=== PATIENT | female | born 1950 | race Caucasian/White ===

== ENCOUNTER 2019-09-29 14:56 | Inpatient (IN) | payer MEDICARE, MEDICAID, OTHER ==
[2019-09-29] MEDS ORDERED: Acetaminophen 500 MG TAB ONE (15:08)
[2019-09-29] MEDS ORDERED: Ondansetron ODT 4 MG TAB PO PRN (18:22)
[2019-09-29] MEDS ORDERED: Zolpidem Tartrate 5 MG TAB PO PRN (18:22)
--- NOTE | 2019-09-29 19:10 | HP ---
PRIMARY CARE PROVIDER: Rito Recinos DO HISTORY OF PRESENT ILLNESS: Referred to the Hospitalist Service after transfer from [place]. The patient states she has been sick for 4 weeks. States she has had a sinus infection, bronchitis, and stuffy head. She got antibiotics 3 weeks ago and did not get any better. She relates this to the fact that she has Crohn disease and did not absorb well. Then, she got a liquid antibiotic that she finished 2 to 3 days ago. She has off and on fever at 99 to 101, shaking chills with that and then sweats after the fever breaks. She has had no focal complaints. She has a history of Crohn disease. She has a history of deep vein thrombosis and pulmonary emboli, on chronic oral anticoagulation, history of hypothyroidism and dyslipidemia. CURRENT MEDICATIONS: 1. Levothyroxine 100 mcg a day. 2. Azathioprine 150 mg a day. 3. Esomeprazole 20 mg a day. 4. Eliquis 5 mg twice a day. 5. Potassium chloride 10 mEq twice a day. 6. Lipitor 20 mg a day. 7. Gabapentin 600 mg a day. ALLERGIES: CIPROFLOXACIN, HYDROCODONE, AND WARFARIN. SURGICAL HISTORY: She had abdominal surgery for Crohn's 5 to 6 years ago and ended up with a colostomy. She ended up having a reanastomosis later. FAMILY HISTORY: Mother of cancer. She thinks it was liver. Her mother also had deep vein thrombosis. SOCIAL HISTORY: . Full code status. Daughter, Marlyn Richardson, is next of kin for decision making. Nonsmoker. Drinks a very occasional glass of wine. REVIEW OF SYSTEMS: GENERAL: She has been lightheaded with present illness, but not definitely with arising. No fainting. EYES: No double vision, blurred vision, or flashing lights. EARS, NOSE AND THROAT: No ear pain or drainage. No nasal bleeding. No trouble swallowing. CARDIAC: No chest pain, orthopnea, or paroxysmal nocturnal dyspnea. RESPIRATIONS: No cough, wheezing, or asthma. GASTROINTESTINAL: She has a little nausea with fever. She has occasional diarrhea with no blood that she relates to her Crohn disease. GENITOURINARY: No hematuria or dysuria. MUSCULOSKELETAL: She states her legs are puffy. SKIN: No bruises, bleeding, or rash. HEMATOLOGIC/LYMPHATIC: No tender or swollen lymph nodes in the axilla, inguinal, or cervical area. NEUROLOGIC: No strokes, seizures, or focal weakness. PHYSICAL EXAMINATION: GENERAL: The patient is alert, oriented, cooperative, pleasant lady. VITAL SIGNS: Temperature in the ER ranged from 100.2 to 101.3. Her pulse ranged from 110 to 115. Blood pressure ranged from 107/60 to 158/79. HEAD, EYES, EARS, NOSE, AND THROAT: Revealed pupils are equal, round, and reactive. Extraocular movements are intact. Sclerae are white. Tympanic membranes are clear. Nose is clear. Oral mucous membranes are wet. Dental hygiene is good. CHEST: Clear to auscultation and percussion. HEART: Regular rate and rhythm. First and second heart sounds are clear. There are no appreciated murmurs or gallops. ABDOMEN: Soft. Bowel sounds are normal. There is no hepatosplenomegaly. No mass. No rebound. No bruits. EXTREMITIES: Reveal no cyanosis or clubbing. She has 1 to 2+ pedal edema. PULSES: Carotid, radial, femoral and dorsalis pedis pulses are intact and symmetric. SKIN: Warm and dry without bruises or rash. HEMATOLOGIC/LYMPHATIC: No tender or swollen lymph nodes in axilla, inguinal, or cervical area. NEUROLOGIC: Cranial nerves 2 through 12 intact. Deep tendon reflexes are symmetric. Moves all extremities. IMAGING STUDIES: Chest x-ray reveals no CHF, infiltrate, or cardiomegaly. EKG, sinus tachycardia with no acute ST-T segment abnormality. Both were reviewed by me. LABORATORY DATA: Lactic acid here is 2.6. Laboratory done in [place] [facility]: White count 2.6 with low lymphocytes and neutrophilia, hemoglobin 8.9, platelet count 213,000. Creatinine 2.19, BUN 43. I reviewed her old records. These are dramatically abnormal. Blood sugar 119. Lactic acid 3.2 and then 2.6. Sodium 134, potassium 3.8, CO2 of 15. ADMITTING DIAGNOSES: 1. Sepsis. 2. Acute renal failure. 3. Lactic acidosis. 4. Crohn's. 5. Tachycardia. 6. Fever. DISCUSSION: I suspect the patient's anemia and low white cell count is secondary to her azathioprine. The etiology of her sepsis certainly is not clear. Blood and urine cultures have been ordered. Broad-spectrum antibiotics have been started. IV fluids have been started. Consideration should be given to an intraabdominal abscess; however, CAT scan of the abdomen with contrast would probably be necessary and with her current renal function, we will hold off on this. Repeat renal function studies tomorrow after IV fluids. We will start with IV antibiotics with Ceftin and vancomycin, pharmacy to dose. She is on Eliquis 5 mg twice a day. With her current renal function, we will reduce this to 2.5 mg twice a day. Job ID: [id number]
[2019-09-29] MEDS: Acetaminophen 325 MG TAB PO PRN (20:23)
[2019-09-29] MEDS: Sodium Chloride 0.9% 1,000 ML IV SCH (20:40)
[2019-09-29] MEDS: Famotidine/PF 20 mg/2ml Vial SLOW IVP SCH (20:45)
[2019-09-29] MEDS: Apixaban 2.5 MG TAB PO SCH (20:46)
[2019-09-29] MEDS: Cefepime 2 GM in Sodium Chloride 0.9% 100 ML IVPB SCH (20:46)
[2019-09-29] MEDS: Morphine 4 MG/ML VIAL SLOW IVP PRN (21:34)
[2019-09-29 23:50] LABS: Lactic Acid 0.8 mmol/L (0.5-2.2)
[2019-09-30] MEDS: Acetaminophen 325 MG TAB PO PRN ×4 (01:24→23:50)
[2019-09-30] MEDS: Morphine 4 MG/ML VIAL SLOW IVP PRN ×2 (01:36→08:50)
[2019-09-30] MEDS: Sodium Chloride 0.9% 1,000 ML IV SCH ×3 (02:56→16:53)
[2019-09-30 04:58] LABS: #Eosinphils 0.1 thou/uL (0.0-0.7); #Lymphocytes 0.2 thou/uL (1.20-3.40); #Monocytes 0.1 thou/uL (0.11-0.59); #Neutrophils 2.2 thou/uL (1.40-6.50); %Basophils 0.6 % (0.0-1.0); %Eosinophils 2.1 % (0.0-10.0); %Lymphocytes 6.4 % (21.0-51.0); %Monocytes 2.9 % (0.0-10.0); %Neutrophils 88.1 % (42.0-75.0); Hemoglobin 7.6 g/dL (12.0-16.0); Mean Corpuscular HGB CONC 32.7 g/dL (32.0-36.0); Mean Corpuscular Hemoglobin 30.2 pg (27.0-31.0); Mean Corpuscular Volume 92.4 fL (78.0-98.0); Mean Platelet Volume 9.4 fL (7.4-10.4); Platelet Count 213 thou/uL (130-400); Red Blood Cell (RBC) Count 2.51 mill/uL (4.20-5.40); White Blood Cell (WBC) Count 2.4 thou/uL (4.8-10.8)
[2019-09-30 05:25] LABS: Anion Gap 11 mmol/L (10-20); BUN (Urea Nitrogen) 33 mg/dL (9.8-20.1); Calc. Creatinine Clearance 52 mL/min (70-130); Calcium 6.8 mg/dL (7.8-10.44); Carbon Dioxide 15 mmol/L (23-31); Chloride 112 mmol/L (98-107); Estimated GFR-MDRD 34; Glucose 79 mg/dL (80-115); Potassium 4.4 mmol/L (3.5-5.1); Sodium 134 mmol/L (136-145)
[2019-09-30] MEDS: Cefepime 2 GM in Sodium Chloride 0.9% 100 ML IVPB SCH ×2 (08:34→21:13)
[2019-09-30] MEDS: Famotidine/PF 20 mg/2ml Vial SLOW IVP SCH ×2 (08:35→21:17)
[2019-09-30] MEDS: Apixaban 2.5 MG TAB PO SCH ×2 (08:35→21:23)
--- NOTE | 2019-09-30 09:18 | PDOC.HOSPP ---
- Subjective Encounter Date: 09/30/19 Encounter Time: 09:08 Subjective: still having fever, chills. mild vague abd discomfort - Objective Vital Signs & Weight: Vital Signs (12 hours) Temp Pulse Resp BP Pulse Ox 09/30/19 04:20 99.3 F 09/30/19 02:54 100.8 F H 110 H 20 103/46 L 97 09/30/19 01:25 101.8 F H 09/29/19 23:02 101.9 F H 112 H 20 114/51 L 97 Weight Weight 211 lb 3 oz Result Diagrams: 09/30/19 04:34 09/30/19 04:34 Hospitalist ROS - Medication Medications: Active Medications Generic Name Dose Route Start Last Admin Trade Name Freq PRN Reason Stop Dose Admin Acetaminophen 650 mg 09/29/19 18:22 09/30/19 08:34 Tylenol PO 650 mg Q4H PRN Administration Headache/Fever/Mild Pain (1-3) Apixaban 2.5 mg 09/29/19 21:00 09/30/19 08:35 Eliquis PO 2.5 mg BID SLADE Administration Famotidine 20 mg 09/29/19 21:00 09/30/19 08:35 Pepcid SLOW IVP 20 mg Q12HR SLADE Administration Sodium Chloride 1,000 mls @ 150 mls/hr 09/29/19 18:30 09/30/19 08:33 Normal Saline 0.9% IV 1,000 mls .Q6H40M SLADE Administration Cefepime HCl 2 gm/ Sodium 100 mls @ 200 mls/hr 09/29/19 21:00 09/30/19 08:34 Chloride IVPB 100 mls Q12HR SLADE Administration Morphine Sulfate 4 mg 09/29/19 19:42 09/30/19 08:50 Morphine SLOW IVP 4 mg Q4H PRN Administration Moderate to Severe Pain (6-10) Ondansetron HCl 4 mg 09/29/19 18:22 09/30/19 08:34 Zofran Odt PO 4 mg Q6H PRN Administration Nausea/Vomiting Sodium Chloride 10 ml 09/29/19 21:00 09/30/19 08:35 Flush - Normal Saline IVF 10 ml Q12HR SLADE Administration - Exam General Appearance: awake alert Neck: no JVD Heart: RRR, no murmur Respiratory: CTAB Gastrointestinal: soft, non-tender, normal bowel sounds Extremities: no edema Hosp A/P (1) Sepsis Code(s): A41.9 - SEPSIS, UNSPECIFIED ORGANISM Status: Acute Qualifiers: Sepsis type: sepsis due to unspecified organism Sepsis acute organ dysfunction status: with acute organ dysfunction Severe sepsis acute organ dysfunction type: acute renal failure Severe sepsis shock status: without septic shock (2) Acute renal failure Status: Acute Qualifiers: Acute renal failure type: unspecified Qualified Code(s): N17.9 - Acute kidney failure, unspecified (3) Metabolic acidosis Code(s): E87.2 - ACIDOSIS Status: Acute (4) Crohn disease Code(s): K50.90 - CROHN'S DISEASE, UNSPECIFIED, WITHOUT COMPLICATIONS Status: Acute Qualifiers: Gastrointestinal tract location: small intestine Digestive disease complication type: unspecified complication Qualified Code(s): K50.019 - Crohn 's disease of small intestine with unspecified complications (5) Anticoagulant long-term use 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
[2019-09-30] MEDS ORDERED: Vancomycin 1 GM in Premix Bag 1 BAG IVPB SCH ×2 (10:00→16:00)
--- NOTE | 2019-09-30 12:40 | CT ---
EXAM: CT Abdomen Pelvis W Con PROVIDED CLINICAL HISTORY: Abdominal pain, fever COMPARISON: 05/27/2019 FINDINGS: The visualized lung bases are free of significant opacity. Trace right pleural fluid. The spleen is enlarged, measuring about 14.7 cm in craniocaudal dimension. The liver, pancreas, kidne ys and adrenal glands demonstrate an unremarkable CT appearance. There is conspicuous gallbladder distention without overt pericholecystic inflammatory change. There is mild free fluid within the right paracolic gutter and hepatorenal recess. Wide necked ventral hernias are redemonstrated, similar to prior. There is no evidence for bowel obst ruction. No evidence for free intraperitoneal air. Nonspecific patchy fluid density within the subcutaneous adipose layer at the left lateral abdominal wall. Vascular calcifications are seen. The osseous structures demonstrate no concerning lytic or blastic l esions. IMPRESSION: 1. Conspicuous gallbladder distention without overt pericholecystic inflammatory change. Consider Rig ht upper quadrant ultrasound as indicated. 2. Mild free intraperitoneal fluid. 3. Other findings as above.
[2019-09-30] MEDS ORDERED: Iopamidol 370 76% 50 ML VIAL FS ONE (13:22)
[2019-09-30] MEDS: traMADol HCl 50 MG TAB PO PRN ×2 (16:10→21:15)
[2019-09-30] MEDS: Sodium Bicarbonate Tab 325 MG TAB PO SCH ×2 (16:10→21:15)
[2019-09-30] MEDS: Vancomycin 1 GM in Premix Bag 1 BAG IVPB SCH (21:24)
[2019-10-01] MEDS: Morphine 4 MG/ML VIAL SLOW IVP PRN (00:15)
[2019-10-01] MEDS: Levothyroxine Sodium 100 MCG TAB PO SCH (06:01)
[2019-10-01] MEDS: Sodium Chloride 0.9% 1,000 ML IV SCH ×3 (06:01→20:37)
[2019-10-01] MEDS: Acetaminophen 325 MG TAB PO PRN ×4 (06:21→21:33)
--- NOTE | 2019-10-01 07:49 | ULT ---
RIGHT UPPER QUADRANT ABDOMINAL ULTRASOUND: HISTORY: Abnormal CT with nausea, fever, and diarrhea. COMPARISON: CT abdomen/pelvis 09/30/2019. TECHNIQUE: Multiplanar, reyna scale, and color Doppler images were obtained in a right upper quadrant abdominal u ltrasound. FINDINGS: The liver demonstrates increased echogenicity without focal lesions or intrahepatic ductal dilatation . There is a small mobile gallstone in the gallbladder. The gallbladder is distended without gallbl adder wall thickening or pericholecystic fluid. The common bile duct is normal measuring 5 mm. The visualized portions of the pancreas are unremarkable. The right kidney is normal in echogenicity without hydronephrosis or calculus and measures 9.4 cm in length. IMPRESSION: 1. Cholelithiasis. 2. Fatty liver. POS: EAA
[2019-10-01] MEDS: Apixaban 2.5 MG TAB PO SCH ×2 (09:24→20:37)
[2019-10-01] MEDS: Sodium Bicarbonate Tab 325 MG TAB PO SCH ×3 (09:24→20:37)
[2019-10-01] MEDS: Cefepime 2 GM in Sodium Chloride 0.9% 100 ML IVPB SCH ×2 (09:25→20:39)
[2019-10-01] MEDS: Famotidine/PF 20 mg/2ml Vial SLOW IVP SCH (09:26)
[2019-10-01 09:56] LABS: #Eosinphils 0.1 thou/uL (0.0-0.7); #Lymphocytes 0.1 thou/uL (1.20-3.40); #Monocytes 0.1 thou/uL (0.11-0.59); #Neutrophils 1.7 thou/uL (1.40-6.50); %Eosinophils 3.9 % (0.0-10.0); %Neutrophils 87.1 % (42.0-75.0); Mean Corpuscular HGB CONC 31.3 g/dL (32.0-36.0); Mean Corpuscular Hemoglobin 29.7 pg (27.0-31.0); Mean Corpuscular Volume 95.1 fL (78.0-98.0); Platelet Count 202 thou/uL (130-400); RBC Distribution Width 15.2 % (11.5-14.5); Red Blood Cell (RBC) Count 2.34 mill/uL (4.20-5.40); White Blood Cell (WBC) Count 1.9 thou/uL (4.8-10.8)
[2019-10-01 10:19] LABS: ALT (SGPT) 11 U/L (8-55); AST (SGOT) 33 U/L (5-34); Albumin 1.9 g/dL (3.4-4.8); Alkaline Phosphatase 93 U/L (40-110); Anion Gap 12 mmol/L (10-20); BUN (Urea Nitrogen) 29 mg/dL (9.8-20.1); Bilirubin, Total 0.4 mg/dL (0.2-1.2); Calc. Creatinine Clearance 67 mL/min (70-130); Calcium 6.8 mg/dL (7.8-10.44); Carbon Dioxide 13 mmol/L (23-31); Chloride 114 mmol/L (98-107); Estimated GFR-MDRD 45; Globulin 2.7 g/dL (2.4-3.5); Glucose 68 mg/dL (80-115); Potassium 4.4 mmol/L (3.5-5.1); Protein, Total 4.6 g/dL (6.0-8.3); Sodium 135 mmol/L (136-145)
--- NOTE | 2019-10-01 11:09 | PDOC.HOSPP ---
- Subjective Encounter Date: 10/01/19 Encounter Time: 10:58 Subjective: cont to have fever, chills. now with cough. no diarrhea, abd pain - Objective Vital Signs & Weight: Vital Signs (12 hours) Temp Pulse Resp BP Pulse Ox 10/01/19 09:43 97 10/01/19 08:00 99.1 F 94 24 H 109/53 L 97 10/01/19 04:00 99.9 F H 99 16 122/52 L 98 10/01/19 00:00 102.7 F H 126 H 20 116/70 96 Weight Admit Weight 211 lb 3 oz Weight 211 lb 3 oz I&O: 09/30/19 10/01/19 10/02/19 06:59 06:59 06:59 Intake Total 1150 2130 Output Total 550 400 Balance 600 1730 Result Diagrams: 10/01/19 09:29 10/01/19 09:29 Hospitalist ROS - Medication Medications: Active Medications Generic Name Dose Route Start Last Admin Trade Name Freq PRN Reason Stop Dose Admin Acetaminophen 650 mg 09/29/19 18:22 10/01/19 06:21 Tylenol PO 650 mg Q4H PRN Administration Headache/Fever/Mild Pain (1-3) Apixaban 2.5 mg 09/29/19 21:00 10/01/19 09:24 Eliquis PO 2.5 mg BID SLADE Administration Sodium Chloride 1,000 mls @ 150 mls/hr 09/29/19 18:30 10/01/19 06:01 Normal Saline 0.9% IV 1,000 mls .Q6H40M SLADE Administration Cefepime HCl 2 gm/ Sodium 100 mls @ 200 mls/hr 09/29/19 21:00 10/01/19 09:25 Chloride IVPB 100 mls Q12HR SLADE Administration Vancomycin HCl 1 gm/ Device 200 mls @ 200 mls/hr 09/30/19 22:00 09/30/19 21: 24 IVPB 200 mls 2200 SLADE Administration Levothyroxine Sodium 100 mcg 10/01/19 06:00 10/01/19 06:01 Synthroid PO 100 mcg 0600 SLADE Administration Morphine Sulfate 4 mg 09/29/19 19:42 10/01/19 00:15 Morphine SLOW IVP 4 mg Q4H PRN Administration Moderate to Severe Pain (6-10) Ondansetron HCl 4 mg 09/29/19 18:22 09/30/19 08:34 Zofran Odt PO 4 mg Q6H PRN Administration Nausea/Vomiting Pantoprazole Sodium 40 mg 10/01/19 09:00 10/01/19 09:24 Protonix PO 40 mg DAILY SLADE Administration Sodium Bicarbonate 650 mg 09/30/19 15:00 10/01/19 09:24 Bicarbonate, Sodium PO 650 mg TID SLADE Administration Sodium Chloride 10 ml 09/29/19 21:00 10/01/19 09:27 Flush - Normal Saline IVF 10 ml Q12HR SLADE Administration Tramadol HCl 25 mg 09/30/19 09:06 09/30/19 21:15 Ultram PO 25 mg BIDPRN PRN Administration Pain - Exam General Appearance: awake alert Neck: no JVD Heart: RRR, no murmur Respiratory: CTAB Gastrointestinal: soft, non-tender, normal bowel sounds Extremities: no edema Hosp A/P (1) Sepsis Code(s): A41.9 - SEPSIS, UNSPECIFIED ORGANISM Status: Acute Qualifiers: Sepsis type: sepsis due to unspecified organism Sepsis acute organ dysfunction status: with acute organ dysfunction Severe sepsis acute organ dysfunction type: acute renal failure Severe sepsis shock status: without septic shock (2) Acute renal failure Status: Acute Qualifiers: Acute renal failure type: unspecified Qualified Code(s): N17.9 - Acute kidney failure, unspecified (3) Metabolic acidosis Code(s): E87.2 - ACIDOSIS Status: Acute (4) Crohn disease Code(s): K50.90 - CROHN'S DISEASE, UNSPECIFIED, WITHOUT COMPLICATIONS Status: Acute Qualifiers: Gastrointestinal tract location: small intestine Digestive disease complication type: unspecified complication Qualified Code(s): K50.019 - Crohn 's disease of small intestine with unspecified complications (5) Anticoagulant long-term use 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
--- NOTE | 2019-10-01 14:03 | CT ---
CHEST CT SCAN: Date: 10/01/2019 HISTORY: Cough for 3 weeks and shortness of breath with exertion, with clinical concern for COVID. FINDINGS: There is considerable motion artifact. Very minimal right pleural fluid or pleural thickening. No anne dence for alveolar parenchymal changes, confluent pneumonia, or abnormal ground-glass opacity changes . No mediastinal mass or adenopathy. There is evidence for large left upper lateral abdominal wall he rnia, as well as some prominent left upper lateral abdominal wall subcutaneous fat stranding. There a re some borderline to minimally enlarged lymph nodes in the gastrohepatic ligament region up to 1.5 c m short axis. IMPRESSION: No evidence for pneumonia. Small pleural effusion or pleural thickening. Several borderline to mildly enlarged gastrohepatic ligament lymph nodes. Large left anterolateral abdominal wall ventral hernia. Focal superficial soft tissue subcutaneous fat stranding involving the lateral upper visualized abdo men. POS: RRE
--- NOTE | 2019-10-01 15:16 | PDOC.EVN ---
Event Note - Event Note Event Note: COVID still pending. CT chest unrevealing etiology of fever/sepsis
--- NOTE | 2019-10-01 15:33 | CON ---
DATE OF CONSULTATION: 10/01/2019 REASON FOR CONSULTATION: Fever of unknown origin. HISTORY OF PRESENT ILLNESS: A 69-year-old, whom I had seen at the rehab in 2013, when she presented with a longstanding history of inflammatory bowel disease/Crohn disease, obesity, which had been relatively quiescent until 2013, when she developed intussusception associated with active Crohn disease. She required ileostomy, partial resection of the ascending colon, and ileotransverse anastomosis. She had a breakdown of the ileostomy area, developed an enterocutaneous fistula. She did well after surgical repair and had some antimicrobial therapy, but resolved. Has not been in the hospital since 2014 and had been on Imuran, and now over the past 4 weeks, has developed recurrent episodes of fever and myalgias. She was treated with oral antimicrobial therapy for possible sinusitis and associated infection, but that did not help, so eventually was admitted. She was placed in the COVCT rule out area. Currently, she is awake. She is feeling comfortable except for when she has fever. No headaches. No visual symptoms, sore throat, odynophagia, or dysphagia. No dental pain or back pain. No cough or sputum production or chest pain. No abdominal pain. Voiding without difficulty. She has soft stool, but not liquid. No bleeding. No joint symptoms. No skin disorder. No neurological symptoms. MEDICAL HISTORY: Crohn disease with partial ileal resection with then complications, which were fixed postoperatively. She had DVT and pulmonary embolism on July 14 and has been on Eliquis since. ALLERGIES: CIPRO, HYDROCODONE, NORCO, WARFARIN. FAMILY HISTORY: Noncontributory. SOCIAL HISTORY: Never smoker. CURRENT MEDICATIONS: 1. Eliquis. 2. Cefepime. 3. Synthroid. 4. Morphine. 5. Zofran. 6. Protonix. 7. Ultram. 8. Vancomycin. PHYSICAL EXAMINATION: VITAL SIGNS: T-max of 103 on September 29, she was 99 just recently and now 100.1. BP 99/49, pulse 101, respirations 20 to 24, O2 saturation 97. SKIN: The patient has a peripheral IV access. She is urinating in the bedside commode. No lymphadenopathy. HEENT: Ocular movements are conjugate. Conjunctivae are somewhat pale. Nasal passages patent. Oral cavity normal. Numerous teeth in place. NECK: Supple. No jugular vein distention or carotid bruits. LUNGS: Symmetric, clear breath sounds. HEART: S1 and S2, regular rate. ABDOMEN: Slightly protuberant, but not tender. No ascites. No bladder distention. EXTREMITIES: Osteoarthrosis in knees and ankles, but no acute inflammatory changes. No edema. She moves extremities equally. NEUROLOGIC: Cognitive function appears to be intact. LABORATORY DATA: White cell count was 2.4, now 1.9; hemoglobin 7.6; MCV of 92; platelets 213; and 88% neutrophils. Creatinine was up at 1.52 and is down to 1.19, her baseline is 1.0. Calcium is 6.8. Liver profile is normal. Albumin 1.9. IMAGING STUDIES: Include an abdomen and pelvis CT, which showed gallbladder distention, mild free intraperitoneal fluid, ventral hernias, patchy fluid density within the subcutaneous adipose layer of the left lateral abdominal wall. CT chest with angiogram showed no pneumonia, small pleural effusion, pleural thickening, mildly enlarged gastrohepatic ligament lymph nodes. MICROBIOLOGY: We have negative blood cultures thus far negative. Negative urine culture. Influenza A and B were negative as well. ASSESSMENT: 1. Longstanding inflammatory bowel disease/Crohn's, prior complications, refer to above. 2. Imuran for treatment with presumed remission for the past 5 years. 3. Fever for the past 4 weeks of unknown origin. DISCUSSION: 1. The patient has moderate pancytopenia. Other than that, she does not have any focal symptoms. She does have some myalgias with the fever, but that is about it. The differential diagnosis includes reactivation of Crohn disease, which has not yet been disclosed. 2. Opportunistic infectious process including histoplasmosis, tuberculosis, Cryptococcal infection, and Cytomegalovirus infection. Lymphoma appears to be less likely, but not yet ruled out. Thromboembolism is unlikely in view of the concomitant use of Eliquis. Adult Still disease will be a diagnosis of exclusion if nothing else is identified. She does have significant anemia, which is more likely anemia of chronic disease, which would indicate significant inflammatory process. We will submit ferritin, cryptococcus antigen, histoplasma antigen in urine and plasma, CMV DNA PCR. If nothing pans out, then we will have to consider Karius test. Job ID: [id number]
[2019-10-01] MEDS: Vancomycin 1 GM in Premix Bag 1 BAG IVPB SCH (20:38)
[2019-10-01] MEDS: traMADol HCl 50 MG TAB PO PRN (22:46)
[2019-10-02] MEDS: Sodium Chloride 0.9% 1,000 ML IV SCH ×4 (03:01→22:01)
[2019-10-02] MEDS: Acetaminophen 325 MG TAB PO PRN ×4 (03:01→18:27)
[2019-10-02] MEDS: Levothyroxine Sodium 100 MCG TAB PO SCH (04:38)
[2019-10-02] MEDS: Apixaban 2.5 MG TAB PO SCH ×2 (08:31→21:59)
[2019-10-02] MEDS: Cefepime 2 GM in Sodium Chloride 0.9% 100 ML IVPB SCH ×2 (08:32→21:59)
[2019-10-02] MEDS: Sodium Bicarbonate Tab 325 MG TAB PO SCH ×3 (08:33→21:59)
--- NOTE | 2019-10-02 14:06 | PDOC.HOSPP ---
- Subjective Encounter Date: 10/02/19 Encounter Time: 09:45 Subjective: pt had muffin, lvery little this am. no BM, no abd pain, exam did not reveal any tenderness. - Objective Vital Signs & Weight: Vital Signs (12 hours) Temp Pulse Resp BP Pulse Ox 10/02/19 11:15 97.8 F 93 18 128/60 100 10/02/19 08:25 96.1 F L 97 18 131/73 100 10/02/19 03:08 99.5 F 83 20 113/53 L 98 Weight Admit Weight 211 lb 3 oz Weight 211 lb 3 oz I&O: 10/01/19 10/02/19 10/03/19 06:59 06:59 06:59 Intake Total 1150 5190 480 Output Total 550 1650 Balance 600 3540 480 Result Diagrams: 10/01/19 09:29 10/01/19 09:29 Hospitalist ROS - Medication Medications: Active Medications Generic Name Dose Route Start Last Admin Trade Name Freq PRN Reason Stop Dose Admin Acetaminophen 650 mg 09/29/19 18:22 10/02/19 13:54 Tylenol PO 650 mg Q4H PRN Administration Headache/Fever/Mild Pain (1-3) Apixaban 2.5 mg 09/29/19 21:00 10/02/19 08:31 Eliquis PO 2.5 mg BID SLADE Administration Sodium Chloride 1,000 mls @ 150 mls/hr 09/29/19 18:30 10/02/19 13:54 Normal Saline 0.9% IV 1,000 mls .Q6H40M SLADE Administration Cefepime HCl 2 gm/ Sodium 100 mls @ 200 mls/hr 09/29/19 21:00 10/02/19 08:32 Chloride IVPB 100 mls Q12HR SLADE Administration Vancomycin HCl 1 gm/ Device 200 mls @ 200 mls/hr 09/30/19 22:00 10/01/19 20: 38 IVPB 200 mls 2200 SLADE Administration Levothyroxine Sodium 100 mcg 10/01/19 06:00 10/02/19 04:38 Synthroid PO 100 mcg 0600 SLADE Administration Morphine Sulfate 4 mg 09/29/19 19:42 10/01/19 00:15 Morphine SLOW IVP 4 mg Q4H PRN Administration Moderate to Severe Pain (6-10) Ondansetron HCl 4 mg 09/29/19 18:22 09/30/19 08:34 Zofran Odt PO 4 mg Q6H PRN Administration Nausea/Vomiting Pantoprazole Sodium 40 mg 10/01/19 09:00 10/02/19 08:33 Protonix PO 40 mg DAILY SLADE Administration Sodium Bicarbonate 650 mg 09/30/19 15:00 10/02/19 13:54 Bicarbonate, Sodium PO 650 mg TID SLADE Administration Sodium Chloride 10 ml 09/29/19 21:00 10/02/19 08:33 Flush - Normal Saline IVF 10 ml Q12HR SLADE Administration Tramadol HCl 25 mg 09/30/19 09:06 10/01/19 22:46 Ultram PO 25 mg BIDPRN PRN Administration Pain Zolpidem Tartrate 5 mg 09/29/19 18:22 10/01/19 20:37 Ambien PO 5 mg HSPRN PRN Administration Insomnia - Exam General Appearance: NAD, awake alert Eye: PERRL ENT: normocephalic atraumatic Neck: supple Heart: RRR Respiratory: CTAB Gastrointestinal: soft, non-tender, non-distended, normal bowel sounds Hosp A/P - Plan (1) Sepsis Code(s): A41.9 - SEPSIS, UNSPECIFIED ORGANISM Status: Acute Qualifiers: Sepsis type: sepsis due to unspecified organism Sepsis acute organ dysfunction status: with acute organ dysfunction Severe sepsis acute organ dysfunction type: acute renal failure Severe sepsis shock status: without septic shock (2) Acute renal failure Status: Acute Qualifiers: Acute renal failure type: unspecified Qualified Code(s): N17.9 - Acute kidney failure, unspecified (3) Metabolic acidosis Code(s): E87.2 - ACIDOSIS Status: Acute (4) Crohn disease Code(s): K50.90 - CROHN'S DISEASE, UNSPECIFIED, WITHOUT COMPLICATIONS Status: Acute Qualifiers: Gastrointestinal tract location: small intestine Digestive disease complication type: unspecified complication Qualified Code(s): K50.019 - Crohn 's disease of small intestine with unspecified complications (5) Anticoagulant long-term use 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
--- NOTE | 2019-10-02 16:01 | PRG ---
DATE OF SERVICE: 10/02/2019 SUBJECTIVE: Debra had a breakfast today and little bit nauseated but not much. Right now, she has no headaches. No respiratory symptoms, although she did have earlier little bit of cough and clear sputum production a small amount. She does not have any abdominal pain and she is urinating without difficulty. Initially, she said she was having some thigh pain, right side, but when I examined it, she denied that she was having any tenderness and it was more like a weakness of movement or difficulty in mobilizing her right lower extremity. OBJECTIVE: VITAL SIGNS: Showed a T-max of 99.5 earlier. She is now 97.8, blood pressure 120/60, pulse 93, respirations 18, O2 saturation 100. SKIN: Okay. Peripheral IV access. She is urinating in the bedside commode. She is able to get up and go to or transfer to the bedside commode with a little bit of difficulty. LUNGS: Clear. HEART: S1 and S2, regular rate. ABDOMEN: Soft, not distended or tender. No ascites. No bladder distention. EXTREMITIES: No tenderness on palpation of the right thigh area. No erythema noted. LABORATORY DATA: White cell count 1.9, hemoglobin 7, platelets 202, 87% neutrophils. Liver profile normal. Calcium 6.8, creatinine 1.19. ASSESSMENT AND DISCUSSION: Longstanding inflammatory bowel disease/Crohn's, prior complications, which required surgical intervention, now on Imuran, and presumed remission for the past 5 years and fever of unknown origin for the past 4 weeks. She has moderate pancytopenia and usual differential for those cases include opportunistic infections, malignancies, particularly the lymphoma. Autoimmune processes are less likely. We will continue waiting for the antigen in the other serological results. She may need a bone marrow biopsy depending on how her CBC continues to progress. Job ID: [id number] [facility]
[2019-10-02] MEDS: traMADol HCl 50 MG TAB PO PRN (18:25)
[2019-10-03] MEDS: Sodium Chloride 0.9% 1,000 ML IV SCH ×2 (04:35→12:05)
[2019-10-03] MEDS: Levothyroxine Sodium 100 MCG TAB PO SCH (06:28)
[2019-10-03] MEDS: Apixaban 2.5 MG TAB PO SCH (09:03)
[2019-10-03] MEDS: Cefepime 2 GM in Sodium Chloride 0.9% 100 ML IVPB SCH ×2 (09:04→21:00)
[2019-10-03] MEDS: Sodium Bicarbonate Tab 325 MG TAB PO SCH ×3 (09:04→21:00)
[2019-10-03] MEDS: Acetaminophen 325 MG TAB PO PRN (09:11)
--- NOTE | 2019-10-03 12:45 | PDOC.HOSPP ---
- Subjective Encounter Date: 10/03/19 Encounter Time: 11:10 Subjective: pt doing well, no cough and sob at rest. will repeat hgb if < 7.5- transfuse., on eliquis, quantiferon test pending. - Objective Vital Signs & Weight: Vital Signs (12 hours) Temp Pulse Resp BP Pulse Ox 10/03/19 11:16 93 22 H 125/58 L 98 10/03/19 08:00 97 10/03/19 07:34 99.4 F 83 20 118/52 L 97 10/03/19 04:38 98.6 F 96 18 137/66 97 10/03/19 04:00 98.6 F 97 16 90/60 97 Weight Admit Weight 211 lb 3 oz Weight 248 lb 14.4 oz I&O: 10/02/19 10/03/19 10/04/19 06:59 06:59 06:59 Intake Total 5190 4328 Output Total 1650 1100 Balance 3540 3228 Result Diagrams: 10/01/19 09:29 10/01/19 09:29 Hospitalist ROS - Medication Medications: Active Medications Generic Name Dose Route Start Last Admin Trade Name Freq PRN Reason Stop Dose Admin Acetaminophen 650 mg 09/29/19 18:22 10/03/19 09:11 Tylenol PO 650 mg Q4H PRN Administration Headache/Fever/Mild Pain (1-3) Apixaban 2.5 mg 09/29/19 21:00 10/03/19 09:03 Eliquis PO 2.5 mg BID SLADE Administration Sodium Chloride 1,000 mls @ 150 mls/hr 09/29/19 18:30 10/03/19 12:05 Normal Saline 0.9% IV 1,000 mls .Q6H40M SLADE Administration Cefepime HCl 2 gm/ Sodium 100 mls @ 200 mls/hr 09/29/19 21:00 10/03/19 09:04 Chloride IVPB 100 mls Q12HR SLADE Administration Levothyroxine Sodium 100 mcg 10/01/19 06:00 10/03/19 06:28 Synthroid PO 100 mcg 0600 SLADE Administration Morphine Sulfate 4 mg 09/29/19 19:42 10/01/19 00:15 Morphine SLOW IVP 4 mg Q4H PRN Administration Moderate to Severe Pain (6-10) Ondansetron HCl 4 mg 09/29/19 18:22 09/30/19 08:34 Zofran Odt PO 4 mg Q6H PRN Administration Nausea/Vomiting Pantoprazole Sodium 40 mg 10/01/19 09:00 10/03/19 09:03 Protonix PO 40 mg DAILY SLADE Administration Sodium Bicarbonate 650 mg 09/30/19 15:00 10/03/19 09:04 Bicarbonate, Sodium PO 650 mg TID SLADE Administration Sodium Chloride 10 ml 09/29/19 21:00 10/03/19 09:04 Flush - Normal Saline IVF 10 ml Q12HR SLADE Administration Tramadol HCl 25 mg 09/30/19 09:06 10/02/19 18:25 Ultram PO 25 mg BIDPRN PRN Administration Pain Zolpidem Tartrate 5 mg 09/29/19 18:22 10/01/19 20:37 Ambien PO 5 mg HSPRN PRN Administration Insomnia - Exam General Appearance: NAD, awake alert Eye: PERRL ENT: normocephalic atraumatic Neck: supple Heart: RRR, normal peripheral pulses Respiratory: CTAB, normal chest expansion Gastrointestinal: soft, normal bowel sounds Hosp A/P - Plan (1) Sepsis Code(s): A41.9 - SEPSIS, UNSPECIFIED ORGANISM Status: Acute Qualifiers: Sepsis type: sepsis due to unspecified organism Sepsis acute organ dysfunction status: with acute organ dysfunction Severe sepsis acute organ dysfunction type: acute renal failure Severe sepsis shock status: without septic shock (2) Acute renal failure Status: Acute Qualifiers: Acute renal failure type: unspecified Qualified Code(s): N17.9 - Acute kidney failure, unspecified (3) Metabolic acidosis Code(s): E87.2 - ACIDOSIS Status: Acute (4) Crohn disease Code(s): K50.90 - CROHN'S DISEASE, UNSPECIFIED, WITHOUT COMPLICATIONS Status: Acute Qualifiers: Gastrointestinal tract location: small intestine Digestive disease complication type: unspecified complication Qualified Code(s): K50.019 - Crohn 's disease of small intestine with unspecified complications (5) hx of DVt and PE Anticoagulant long-term use -eliquis (6) Hypothyroid Code(s): E03.9 - HYPOTHYROIDISM, UNSPECIFIED Status: Chronic Qualifiers: Hypothyroidism type: unspecified Qualified Code(s): E03.9 - Hypothyroidism , unspecified Anemia of chronic disease --hgb on 09/30 was 7. repeat cbc and if < 7.5, will get transfusion, keep low threshold as pt on eliquis as well. ] cultures - crypt only came back - neg. cont cefepime/vancomycin-------->stopped vanc COVID screen --------------> negative cont to hold azathioprine CT of chest-------> smal pl effusion, no PNA have consulted ID
[2019-10-03 13:07] LABS: Hemoglobin 4.5 g/dL (12.0-16.0); Mean Corpuscular HGB CONC 32.5 g/dL (32.0-36.0); Mean Corpuscular Hemoglobin 29.9 pg (27.0-31.0); Mean Corpuscular Volume 92.2 fL (78.0-98.0); Mean Platelet Volume 8.8 fL (7.4-10.4); Platelet Count 389 thou/uL (130-400); Red Blood Cell (RBC) Count 1.48 mill/uL (4.20-5.40); White Blood Cell (WBC) Count 2.3 thou/uL (4.8-10.8)
[2019-10-03 13:26] LABS: Anisocytosis SLIGHT = 6-15 cells (100X) (0-5/hpf); Band 7 % (5-11); Eosinophils 2 % (0-10); Lymphocytes 4 % (21-51); MDiff Complete? YES; Metamyelocyte 1 % (0-0); Monocytes 5 % (0-10); Neutrophil 80 % (42-75); Ovalocytes SLIGHT = 2-5 cells (100X) (0-1/hpf); Platelet Morphology Comment Appears Adequate; Polychromasia SLIGHT = 2-3 cells (100X) (0-2/hpf)
[2019-10-03 16:52] LABS: Hemoglobin 7.6 g/dL (12.0-16.0)
[2019-10-03 17:04] LABS: Iron 12 ug/dL (50-170); Iron Binding Capacity, Total 114 mcg/dL (265-497)
[2019-10-03 17:40] LABS: Vitamin B12 Greater than 2000 pg/mL (211-911)
[2019-10-03] MEDS: Pantoprazole 40 MG VIAL IVP SCH (21:02)
--- NOTE | 2019-10-03 22:23 | CON ---
DATE OF CONSULTATION: REASON FOR CONSULT: Anemia. CONSULTING PHYSICIAN: Javier Lamb MD HISTORY OF PRESENT ILLNESS: The patient is admitted for fever of unknown origin. Hemoglobin was 8.9 on admission, had been at baseline of 11 in June of this year in our office, it has gone down to 7 on the and 4.5 today. I talked with the nurses, there have been no overt bleeding. I talked with the patient, she has had yellow stools. She is on Eliquis, which has been held. The blood work has not been rechecked, the blood transfusion has been ordered. Ms. Richardson is a 69-year-old female, who is well known to our clinic, where she has seen Dr. Kin Petersen for several years for Crohn disease. This involved the early distal small bowel. It was diagnosed about [address] Petersen first saw her in 2013, she really had been under no care of anyone for quite some time. She had an ileal disease with stricture at that time and she had a resection with Dr. Egan with hemicolectomy and ileum removal with some appearance of granulomas at that time. 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 She went home with loop ileostomy in place. In 2014, she underwent an ileoscopy and colonoscopy. The ileoscopy showed no active disease. The colonoscopy had to be aborted in the sigmoid colon as there was a smooth stricture there. The colonoscopy was actually done after the ostomy takedown in 2014. It was felt that second colonoscopy had to be takedown because the right colon could not be reached that she had an active disease. At that time, she is being managed with Imuran 150 mg a day and seemed to tolerate it very well. She was admitted to this hospital in transfer from [place], where she had seen her doctor several times over the past month for fever and cough, which was felt to be a sinusitis. When she got worse and was not getting better after antibiotics several courses, then she was sent to the emergency room as she developed rigors, chills, and a fever of 101. Here, she had a negative COVID test. She has been seen by Dr. Wheeler and she is having evaluation for TB, histoplasmosis, cryptococcal or CMV infections, lymphoma was a consideration for this as well. So far, evaluation has been negative with a negative coronavirus test. Blood cultures showed some gram-positive rods, zero gram-negative, group A strep was negative, and cryptococcal antigen was negative. As regards her flutter valve, she states she has been doing very well. She was seen by Dr. Petersen earlier this year in June and had a normal CBC and liver function tests with a hemoglobin of 11, white count of 4, and platelet count of 281. She actually has had some drop in weight at that time, 240 pounds from 254 pounds when we had seen her six months prior to that. She had been 280 pounds back in last year. She reports that she does have fever and cough and felt bad and some chills and rigors. She denied any dysuria, frequency, or urgency. Denied any issues with her bowels worsening. She states she takes iron at home usually and has dark green stools just one or two a day. Here, she has been off the iron and the stool has been yellow. She has seen no blood or melena or hematochezia. She has had no nausea, vomiting, or abdominal pain. Denies any perirectal discharge or drainage. PAST MEDICAL HISTORY: 1. Crohn's disease as noted per HPI, ileal and previous surgery. 2. Prior history of DVT in 2014, it sounds like it was around the time of her surgeries. She has had a PE at that time as well as, has been on Eliquis ever since. 3. She is obese. PAST SURGICAL HISTORY: Includes previous ileocolonic resection, right hemicolectomy with loop ileostomy and then subsequent takedown of that. Her last colonoscopy was in 2014, at which time, she was not able to have a full exam because of a benign noninflamed chronic stricture in the sigmoid colon. ALLERGIES: CIPRO, HYDROCODONE, NORCO, AND WARFARIN. FAMILY HISTORY: Noncontributory. Family history, no Crohn's or colitis. SOCIAL HISTORY: She was never a smoker. Does not drink or use drugs. MEDICATIONS: 1. Eliquis. 2. Cefepime. 3. Synthroid. 4. Morphine. 5. Zofran. 6. Protonix. 7. Ultram. 8. Vancomycin. These are the medicines here. Home medications: 1. Tramadol. 2. Sodium bicarbonate. 3. Levothyroxine. 4. Nexium. 5. Eliquis. 6. Lopressor. 7. Azathioprine 150 mg daily. 8. Multivitamin. REVIEW OF SYSTEMS: Negative for dysphagia, odynophagia, or cough, but she has had a nonproductive dry cough. She has had no hemoptysis. No dyspnea. No abdominal pain. No back pain. No rashes, myalgias, or arthralgias. PHYSICAL EXAMINATION: VITAL SIGNS: Temperature is 97, pulse 81, blood pressure 120/56, and T-max of 102 on 09/28. Last temperature 100 as of 09/30. GENERAL: She is overweight. She is resting comfortably in bed. She is in no distress. HEENT: Oropharynx, no lesions. NECK: Supple. No adenopathy. LUNGS: Clear. HEART: Regular rate and rhythm without murmurs. ABDOMEN: Protuberant with scars. Some slight incisional hernias, but no overt incarceration, masses, or abdominal tenderness. EXTREMITIES: No clubbing or cyanosis. There is edema, which seems to be chronic lymphedema. SKIN: Without overt lesions. LABORATORY DATA: White count was 2.3 today with platelet count 389, hemoglobin was 4.5, this was around noon today. It was not rechecked, blood has been ordered. On the , hemoglobin was 7. On the , it was 7.6. On the , it was 8.9 and on 05/27/2019, it was 10.2, and it was 11 at our office in June of this year. Her white count trended to be low. It was 5.6 in October of last year, then 4.2 in 2018, 2.6 on admission, 1.9 yesterday, and 2.3 today. Neutrophils have been 80%. Comprehensive metabolic profile noted for BUN and creatinine 29 and 1.9, sodium 135, and potassium 4.4. Liver function tests normal. Protein 4.6 and albumin 2.7. COVID testing negative. CMV, DNA, histoplasmosis, urine antigen, and blood culture pending. Cryptococcal antigen negative. Abdominal ultrasound on 10/01/2019 gallstones. Gallbladder is mildly distended without wall thickening or pericholecystic fluid on admission. 09/30, chest CT normal, mild enlarged gastrohepatic ligaments, large left anterolateral abdominal ventral hernia. CT scan of abdomen and pelvis 09/30/2019, gallbladder distention and mild free intraperitoneal fluid. No overt gallbladder thickening. ASSESSMENT: 1. Fever of unknown origin of unclear etiology. She had a negative COVID test. This does not mean she did not have COVID, about 30% of these can be false negative. Apparently, she does not have any typical features of COVID on CAT scan and she has been sick for about three or four weeks, which would go against that to some degree as well. She has some mild immunosuppression, but really she has not been very immunosuppressed at all. We looked at her labs over time. She has not had any neutropenia or leukopenia and has been closely monitored by Dr. Petersen on the Imuran. Her counts have dropped here to some degree, but this may be either related to the acute process or possibly even to Imuran toxicity. It does not appear she started any medicine recently. 2. Cough. She is not real dyspneic, but she does have a cough, which is concerning. TB tests are pending. 3. Mild leukopenia and anemia. Her platelets are normal. Infection, malignancy, and lymphoma all still in play on this. 4. Drop in hemoglobin. There has been no overt bleeding. She was on Eliquis, has been held. Hemoglobin has progressively dropped here in the hospital. She is receiving some fluids, but I can explain the drop from 7 to 4.5 today. This could have been artificial depending on where the blood was drawn. They are having a difficult time drawing blood from her, but there has been no overt GI bleed. 5. Crohn disease. She has had a dominant stricture in the sigmoid, which could not been passed in 2015. She did not have any endoscopy since then. Her CAT scan showed no overt evidence of active disease with inflammation in the bowel. Presently I am not sure, there is much of a role for endoscopy as she has really no symptoms other than her stools turned yellow and she has a little bit looser stools since stopping the iron, she was on at home. While being here in the hospital, bowel does not look thickened or inflamed on the CT. RECOMMENDATIONS: 1. Iron, TIBC, ferritin, and B12. 2. Recheck H and H now, confirm that she has really dropped. 3. We will get a thyroid appear metabolites to make sure there is not any toxicity, which caused bone marrow suppression, anemia, and increased susceptibility to infections. 4. Agree with ID workup so far. 5. No plans for endoscopy at this point in time. 6. If she continues to have fever, we consider getting a HIDA scan of the gallbladder to make sure there is not any acalculous cholecystitis. We will follow along with you. Job ID: [id number]
[2019-10-04 04:51] LABS: #Eosinphils 0.1 thou/uL (0.0-0.7); #Lymphocytes 0.3 thou/uL (1.20-3.40); #Monocytes 0.2 thou/uL (0.11-0.59); #Neutrophils 1.2 thou/uL (1.40-6.50); %Lymphocytes 14.7 % (21.0-51.0); %Monocytes 8.3 % (0.0-10.0); Hemoglobin 7.3 g/dL (12.0-16.0); Mean Corpuscular HGB CONC 32.2 g/dL (32.0-36.0); Mean Corpuscular Hemoglobin 29.7 pg (27.0-31.0); Mean Corpuscular Volume 92.1 fL (78.0-98.0); Mean Platelet Volume 8.8 fL (7.4-10.4); Platelet Count 311 thou/uL (130-400); RBC Distribution Width 15.2 % (11.5-14.5); Red Blood Cell (RBC) Count 2.45 mill/uL (4.20-5.40); White Blood Cell (WBC) Count 1.8 thou/uL (4.8-10.8)
[2019-10-04] MEDS: Levothyroxine Sodium 100 MCG TAB PO SCH (05:06)
[2019-10-04 05:12] LABS: Anion Gap 9 mmol/L (10-20); BUN (Urea Nitrogen) 15 mg/dL (9.8-20.1); Calc. Creatinine Clearance 112 mL/min (70-130); Calcium 7.3 mg/dL (7.8-10.44); Carbon Dioxide 17 mmol/L (23-31); Chloride 117 mmol/L (98-107); Estimated GFR-MDRD 69; Glucose 76 mg/dL (80-115); Potassium 3.3 mmol/L (3.5-5.1); Sodium 140 mmol/L (136-145)
[2019-10-04] MEDS: Pantoprazole 40 MG VIAL IVP SCH ×2 (09:00→21:35)
[2019-10-04] MEDS: Sodium Bicarbonate Tab 325 MG TAB PO SCH ×3 (09:00→21:34)
[2019-10-04] MEDS: Cefepime 2 GM in Sodium Chloride 0.9% 100 ML IVPB SCH ×2 (09:00→21:35)
[2019-10-04] MEDS ORDERED: Mupirocin 2% Ointment 22 GM Tube TOP PRN (12:22)
[2019-10-04 12:28] LABS: Ref Lab Test Ordered THIOPURINE METABOLIT; Reference Lab Name LABCORP
[2019-10-04] MEDS ORDERED: Loperamide HCl 2 MG CAP PO PRN (12:28)
[2019-10-04] MEDS ORDERED: azaTHIOprine 50 MG TAB PO SCH (12:30)
--- NOTE | 2019-10-04 12:31 | PDOC.HOSPP ---
- Subjective Encounter Date: 10/04/19 Encounter Time: 10:35 Subjective: post nasal drip this am., diarrhea, stable, pending quantiferon result. aferile , slightly tachy, normotensive - Objective Vital Signs & Weight: Vital Signs (12 hours) Temp Pulse Resp BP Pulse Ox 10/04/19 08:00 98 F 96 17 128/60 98 10/04/19 02:54 98.0 F 102 H 20 136/64 97 Weight Admit Weight 211 lb 3 oz Weight 245 lb 6.4 oz I&O: 10/03/19 10/04/19 10/05/19 06:59 06:59 06:59 Intake Total 4328 380 Output Total 1100 201 Balance 3228 179 Result Diagrams: 10/04/19 04:26 10/04/19 04:26 Hospitalist ROS - Medication Medications: Active Medications Generic Name Dose Route Start Last Admin Trade Name Freq PRN Reason Stop Dose Admin Acetaminophen 650 mg 09/29/19 18:22 10/03/19 09:11 Tylenol PO 650 mg Q4H PRN Administration Headache/Fever/Mild Pain (1-3) Cefepime HCl 2 gm/ Sodium 100 mls @ 200 mls/hr 09/29/19 21:00 10/04/19 09:00 Chloride IVPB 100 mls Q12HR SLADE Administration Levothyroxine Sodium 100 mcg 10/01/19 06:00 10/04/19 05:06 Synthroid PO 100 mcg 0600 SLADE Administration Morphine Sulfate 4 mg 09/29/19 19:42 10/01/19 00:15 Morphine SLOW IVP 4 mg Q4H PRN Administration Moderate to Severe Pain (6-10) Ondansetron HCl 4 mg 09/29/19 18:22 09/30/19 08:34 Zofran Odt PO 4 mg Q6H PRN Administration Nausea/Vomiting Pantoprazole Sodium 40 mg 10/03/19 21:00 10/04/19 09:00 Protonix IVP 40 mg Q12HR SLADE Administration Sodium Bicarbonate 650 mg 09/30/19 15:00 10/04/19 09:00 Bicarbonate, Sodium PO 650 mg TID SLADE Administration Sodium Chloride 10 ml 09/29/19 21:00 10/04/19 09:00 Flush - Normal Saline IVF 10 ml Q12HR SLADE Administration Zolpidem Tartrate 5 mg 09/29/19 18:22 10/01/19 20:37 Ambien PO 5 mg HSPRN PRN Administration Insomnia - Exam General Appearance: NAD, awake alert Eye: PERRL ENT: normocephalic atraumatic Neck: supple Heart: RRR Respiratory: CTAB, normal chest expansion Gastrointestinal: soft, normal bowel sounds Hosp A/P - Plan (1) Sepsis Code(s): A41.9 - SEPSIS, UNSPECIFIED ORGANISM Status: Acute Qualifiers: Sepsis type: sepsis due to unspecified organism Sepsis acute organ dysfunction status: with acute organ dysfunction Severe sepsis acute organ dysfunction type: acute renal failure Severe sepsis shock status: without septic shock (2) Acute renal failure Status: Acute Qualifiers: Acute renal failure type: unspecified Qualified Code(s): N17.9 - Acute kidney failure, unspecified (3) Metabolic acidosis Code(s): E87.2 - ACIDOSIS Status: Acute (4) Crohn disease Code(s): K50.90 - CROHN'S DISEASE, UNSPECIFIED, WITHOUT COMPLICATIONS Status: Acute Qualifiers: Gastrointestinal tract location: small intestine Digestive disease complication type: unspecified complication Qualified Code(s): K50.019 - Crohn 's disease of small intestine with unspecified complications (5) hx of DVt and PE Anticoagulant long-term use -eliquis (6) Hypothyroid Code(s): E03.9 - HYPOTHYROIDISM, UNSPECIFIED Status: Chronic Qualifiers: Hypothyroidism type: unspecified Qualified Code(s): E03.9 - Hypothyroidism , unspecified Anemia of chronic disease --hgb on 09/30 was 7. repeat cbc and if < 7.5, will get transfusion, keep low threshold as pt on eliquis as well. ] cultures - crypt only came back - neg. cont cefepime/vancomycin-------->stopped vanc COVID screen --------------> negative cont to hold azathioprine CT of chest-------> smal pl effusion, no PNA Diarrhea -- prob abx induced --rule out cdiff --then start imodium [nursing commn.. given this way] Crohns -restarted her imuran [pt requesting to get back on it], knowing still quantiferon test pending. -checked w.. ID as well,restart it today.
[2019-10-04] MEDS: azaTHIOprine 50 MG TAB PO SCH (13:39)
--- NOTE | 2019-10-04 14:29 | PRG ---
DATE OF SERVICE: 10/04/2019 SUBJECTIVE: Ms. Richardson reports that she has had a couple of loose stools. The nurses report that a C. diff has been ordered. She reports that she was started back on her azathioprine. As far as her anemia when her hemoglobin dropped to 4.5 yesterday after recheck, it was 7.6, she did not get transfusion. She has no cough. No fever. OBJECTIVE: VITAL SIGNS: Temperature 98. She has been afebrile over 24 hours, pulse 96. ABDOMEN: Soft, nontender. LABORATORY DATA: White count 1.8, hemoglobin 7.3, platelet count 311, 14% lymphocytes. Sodium 140, potassium 3.3, BUN and creatinine are 15 and 0.8. ASSESSMENT: 1. Anemia. She had a drop in hemoglobin and that looks like that was probably artifactual, so repeat lab was back to her baseline of 7. She was running around 10 to 11 in the outpatient setting. I suspect that some of her drop in hemoglobin is related to her drop in white count. She is a pancytopenic of her platelets. This could be related to her infection. This could be related to whatever her infection was or could be related to her Imuran. 2. Crohn's. This is in remission. There have been no signs of bleeding. Her stools are a little bit loose in the ER at home. This maybe related to antibiotics or it may relate to the fact that her iron was stopped. RECOMMENDATIONS: 1. Await thiopurine metabolite levels. 2. Await rest of the ID workup. 3. I think you can restart her iron once a day and I will do that. We will continue to follow with you. Job ID: [id number]
[2019-10-04] MEDS: Ferrous Sulfate 325 MG TAB PO SCH (17:38)
[2019-10-04] MEDS: Acetaminophen 325 MG TAB PO PRN (21:34)
[2019-10-04] MEDS: Vancomycin HCl 25 MG/ML Oral PO SCH (21:40)
[2019-10-05] MEDS: Levothyroxine Sodium 100 MCG TAB PO SCH (05:28)
[2019-10-05 05:30] LABS: Band 11 % (5-11); Eosinophils 3 % (0-10); Hemoglobin 7.2 g/dL (12.0-16.0); Lymphocytes 14 % (21-51); MDiff Complete? YES; Mean Corpuscular HGB CONC 32.9 g/dL (32.0-36.0); Mean Corpuscular Hemoglobin 29.7 pg (27.0-31.0); Mean Corpuscular Volume 90.2 fL (78.0-98.0); Mean Platelet Volume 8.5 fL (7.4-10.4); Metamyelocyte 1 % (0-0); Monocytes 5 % (0-10); Neutrophil 66 % (42-75); Platelet Count 316 thou/uL (130-400); Platelet Morphology Comment Appears Adequate; RBC Distribution Width 15.2 % (11.5-14.5); Red Blood Cell (RBC) Count 2.42 mill/uL (4.20-5.40); White Blood Cell (WBC) Count 1.8 thou/uL (4.8-10.8)
[2019-10-05 05:31] LABS: Anion Gap 8 mmol/L (10-20); BUN (Urea Nitrogen) 12 mg/dL (9.8-20.1); Calc. Creatinine Clearance 118 mL/min (70-130); Calcium 7.5 mg/dL (7.8-10.44); Carbon Dioxide 19 mmol/L (23-31); Chloride 116 mmol/L (98-107); Estimated GFR-MDRD 73; Glucose 82 mg/dL (80-115); Potassium 3.3 mmol/L (3.5-5.1); Sodium 140 mmol/L (136-145)
[2019-10-05] MEDS: Ferrous Sulfate 325 MG TAB PO SCH ×2 (08:18→16:37)
[2019-10-05] MEDS: azaTHIOprine 50 MG TAB PO SCH (08:18)
[2019-10-05] MEDS: Cefepime 2 GM in Sodium Chloride 0.9% 100 ML IVPB SCH (08:19)
[2019-10-05] MEDS: Pantoprazole 40 MG VIAL IVP SCH ×2 (08:19→19:49)
[2019-10-05] MEDS: Sodium Bicarbonate Tab 325 MG TAB PO SCH ×3 (08:19→19:48)
[2019-10-05] MEDS: Vancomycin HCl 25 MG/ML Oral PO SCH ×4 (08:19→19:50)
--- NOTE | 2019-10-05 13:58 | PDOC.HOSPP ---
- Subjective Encounter Date: 10/05/19 Encounter Time: 11:30 Subjective: pt had lots of qs, still her results -tried to reach her dtr at [phone] for update - only voice msge. all her qs answered, hgb stable, started on iron supplement. cdiff +ve, on vanco PO. she had few BMs today, per her. - Objective Vital Signs & Weight: Vital Signs (12 hours) Temp Pulse Resp BP Pulse Ox 10/05/19 11:06 98.2 F 97 19 129/60 99 10/05/19 08:16 97.5 F L 84 16 118/56 L 99 10/05/19 03:25 97.6 F 84 16 119/58 L 98 Weight Admit Weight 211 lb 3 oz Weight 245 lb 1.6 oz I&O: 10/04/19 10/05/19 10/06/19 06:59 06:59 06:59 Intake Total 380 1410 Output Total 201 500 Balance 179 910 Result Diagrams: 10/05/19 04:36 10/05/19 04:36 Hospitalist ROS - Medication Medications: Active Medications Generic Name Dose Route Start Last Admin Trade Name Freq PRN Reason Stop Dose Admin Acetaminophen 650 mg 09/29/19 18:22 10/04/19 21:34 Tylenol PO 650 mg Q4H PRN Administration Headache/Fever/Mild Pain (1-3) Azathioprine 150 mg 10/05/19 09:00 10/05/19 08:18 Imuran PO 150 mg DAILY SLADE Administration Ferrous Sulfate 325 mg 10/04/19 17:00 10/05/19 08:18 Feosol PO 325 mg BID-WM SLADE Administration Cefepime HCl 2 gm/ Sodium 100 mls @ 200 mls/hr 09/29/19 21:00 10/05/19 08:19 Chloride IVPB 100 mls Q12HR SLADE Administration Levothyroxine Sodium 100 mcg 10/01/19 06:00 10/05/19 05:28 Synthroid PO 100 mcg 0600 SLADE Administration Morphine Sulfate 4 mg 09/29/19 19:42 10/01/19 00:15 Morphine SLOW IVP 4 mg Q4H PRN Administration Moderate to Severe Pain (6-10) Mupirocin 0 gm 10/04/19 12:22 10/04/19 13:38 Bactroban 2% Ointment TOP 1 applic TID PRN Administration WOUND CARE Ondansetron HCl 4 mg 09/29/19 18:22 09/30/19 08:34 Zofran Odt PO 4 mg Q6H PRN Administration Nausea/Vomiting Pantoprazole Sodium 40 mg 10/03/19 21:00 10/05/19 08:19 Protonix IVP 40 mg Q12HR SLADE Administration Sodium Bicarbonate 650 mg 09/30/19 15:00 10/05/19 08:19 Bicarbonate, Sodium PO 650 mg TID SLADE Administration Sodium Chloride 10 ml 09/29/19 21:00 10/05/19 08:19 Flush - Normal Saline IVF 10 ml Q12HR SLADE Administration Vancomycin HCl 250 mg 10/04/19 21:00 10/05/19 12:48 First Vancomycin PO 250 mg QID SLADE Administration Zolpidem Tartrate 5 mg 09/29/19 18:22 10/01/19 20:37 Ambien PO 5 mg HSPRN PRN Administration Insomnia - Exam General Appearance: awake alert Eye: PERRL ENT: normocephalic atraumatic Neck: supple Heart: RRR Respiratory: CTAB, normal chest expansion Gastrointestinal: soft, normal bowel sounds Neurological: no focal deficits Hosp A/P - Plan (1) Sepsis Code(s): A41.9 - SEPSIS, UNSPECIFIED ORGANISM Status: Acute Qualifiers: Sepsis type: sepsis due to unspecified organism Sepsis acute organ dysfunction status: with acute organ dysfunction Severe sepsis acute organ dysfunction type: acute renal failure Severe sepsis shock status: without septic shock (2) Acute renal failure Status: Acute Qualifiers: Acute renal failure type: unspecified Qualified Code(s): N17.9 - Acute kidney failure, unspecified (3) Metabolic acidosis Code(s): E87.2 - ACIDOSIS Status: Acute (4) Crohn disease Code(s): K50.90 - CROHN'S DISEASE, UNSPECIFIED, WITHOUT COMPLICATIONS Status: Acute Qualifiers: Gastrointestinal tract location: small intestine Digestive disease complication type: unspecified complication Qualified Code(s): K50.019 - Crohn 's disease of small intestine with unspecified complications (5) hx of DVt and PE Anticoagulant long-term use -eliquis (6) Hypothyroid Code(s): E03.9 - HYPOTHYROIDISM, UNSPECIFIED Status: Chronic Qualifiers: Hypothyroidism type: unspecified Qualified Code(s): E03.9 - Hypothyroidism , unspecified Anemia of chronic disease --hgb on 09/30 was 7. repeat cbc and if < 7.5, will get transfusion, keep low threshold as pt on eliquis as well. ] cultures - crypt only came back - neg. cont cefepime/vancomycin-------->stopped vanc COVID screen --------------> negative cont to hold azathioprine CT of chest-------> smal pl effusion, no PNA Diarrhea Cdiff colitis -- prob abx induced --rule out cdiff --then start imodium [nursing commn.. given this way] Crohns -restarted her imuran [pt requesting to get back on it], knowing still quantiferon test pending. -checked w.. ID as well,restart it today. -left a msge to Dr. Petersen, per pt's request. once quantiferon results back, if neg., PT consult and rehab vs.. home dc plan. -tried to reach the dtr, unable.
--- NOTE | 2019-10-05 15:42 | EKG ---
Test Reason : Blood Pressure : / mmHG Vent. Rate : 112 BPM Atrial Rate : 112 BPM P-R Int : 118 ms QRS Dur : 076 ms QT Int : 294 ms P-R-T Axes : 058 -12 018 degrees QTc Int : 401 ms Sinus tachycardia Low voltage QRS Cannot rule out Anteroseptal infarct , age undetermined Abnormal ECG Confirmed by CALEB REYES DO ([id number]), art editor NICOLASA LOPEZ ([id number]) on 10/05/2019 3:41:57 PM Referred By: Confirmed By:CALEB REYES DO
--- NOTE | 2019-10-05 16:55 | PRG ---
DATE OF SERVICE: 10/05/2019 REASON FOR CONSULTATION: Anemia, diarrhea, and Crohn's disease. SUBJECTIVE: Today, the patient states that she is doing well with no acute events or problems overnight. She continues to have some mild diarrhea characterized as 2 to 3 semi-solid bowel movements over the last 24 hours, but states that they are solidifying in terms of consistency. During the course of the workup here in the hospital, she did have stool studies that were positive for both C diff antigen and toxin and was subsequently placed on oral vancomycin, yesterday. Currently responding to treatment well with no problems with administration. Otherwise, she denies any nausea, vomiting, fevers, chills, GI bleeding, dysphagia, or odynophagia. OBJECTIVE: VITAL SIGNS: Temperature 98.6, pulse 95, blood pressure 121/66, respiratory rate 17, and saturating 98% on room air. GENERAL: The patient was lying in bed, in no acute distress. Alert and oriented x4. CARDIOVASCULAR: Regular rate and rhythm. RESPIRATORY: Clear to auscultation bilaterally. ABDOMEN: Normoactive bowel sounds. Soft. Mild abdominal distention. No tenderness to palpation in all abdominal quadrants. EXTREMITIES: No cyanosis or clubbing. 1+/2+ bilateral lower extremity edema extending to mid vega. Increased swelling in the right upper extremity secondary to chronic lymphedema. LABORATORY DATA: CBC with a white blood cell count of 1.8, hemoglobin 7.2, hematocrit 21.9, and platelets 316. Chemistry with a sodium of 140, potassium 3.3, chloride 116, CO2 of 19, BUN 12, creatinine 0.78, and glucose 82. Clostridium difficile antigen and toxin positive. IMAGING DATA: No current GI imaging is available for review. ASSESSMENT AND PLAN: The patient is a 69-year-old female with past medical history of morbid obesity; history of deep venous thrombosis; pulmonary embolism with anticoagulation with Eliquis; and Crohn's disease of the distal small bowel, diagnosed 32 years ago on immunosuppression, presenting with Clostridium difficile colitis, anemia, and leukopenia. Clostridium difficile colitis: The patient initially presented to the hospital with a fever of unknown origin, for which she had undergone an evaluation for tuberculosis, histoplasmosis, cryptococcal, and cytomegalovirus infections with testing negative thus far (although tuberculosis serologies are still pending at this time). However, during the course of this admission, she did complain of some diarrhea with stool studies positive for Clostridium difficile antigen and toxin. At this time, it could potentially generate her fever in addition to mild anemia secondary to inflammation within the colon, but it is questionable as to its ability to cause the leukopenia seen on labs thus far (it usually causes leukocytosis.) During the course of this admission, she also did have testing for COVID 19 virus, which was negative, but serologies for tuberculosis are still pending at this time. Her immunosuppression was only just recently restarted, especially given her fever of unknown origin and in light of adequate treatment for Clostridium difficile and solidification of her stools. I would recommend this being continued. RECOMMENDATIONS 1. I would continue the patient on oral vancomycin 250 mg 4 times daily in light of patient's active immunosuppression. 2. We will continue to monitor clinically for diarrhea and endorse solidification of her stools indicating response to treatment. 3. We will continue her azathioprine despite active infection with Clostridium difficile colitis. 4. Advance diet as tolerated. Crohn's disease: The patient was initially diagnosed with Crohn's disease around 32 years ago with spotty care received for this particular diagnosis for many years. However, in 2013, she was diagnosed with ileal disease with a small bowel stricture that was subsequently resected by Dr. Egan with hemicolectomy and a section of the terminal ileum removed with granulomas seen on pathology consistent with Crohn's disease at that time. 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 After her surgery, she was subsequently placed on azathioprine 150 mg daily and since that time had been doing well on that particular regimen for maintenance of her Crohn's disease. Attempts to repeat a colonoscopy had been minimally successful due to abdominal stricture within the sigmoid colon that does not appear to be malignant in origin. At this time, the patient's Crohn's disease seems to be quiescent with the current immunosuppression. RECOMMENDATIONS 1. We will continue the patient on azathioprine 150 mg daily to prevent against the possible flare of her Crohn's disease in light of Clostridium difficile colitis. 2. We would continue to trend the patient's CBC daily to trend her leukopenia and anemia. 3. We would continue to trend her H and H and transfuse as necessary to maintain H and H of 7/21. 4. Continue to monitor clinically for signs of active gastrointestinal bleeding. 5. Continue to hold any anticoagulation. Anemia: The patient is presenting with a long-standing anemia with iron indices obtained during this admission consistent more with anemia of chronic disease rather than iron deficiency anemia. She is also on concurrent administration of azathioprine, which could potentially cause pancytopenia in addition to her mild anemia, although again it appears this is more due to chronic disease rather than any other process. RECOMMENDATIONS 1. We would continue to trend her H and H as above. 2. Continue azathioprine 150 mg daily. 3. If her leukopenia and anemia worsens, we can consider discontinuation of azathioprine at that time with careful monitoring of the patient for possible flare especially with active Clostridium difficile on board. We will continue to follow. Please call with any questions. Job ID: [id number]
--- NOTE | 2019-10-05 18:30 | PRG ---
DATE OF SERVICE: 10/05/2019 SUBJECTIVE: The patient developed diarrhea and has had a positive C. diff test. Otherwise, she feels okay. Not much abdominal cramps. She was started on oral vancomycin and she has been afebrile since September 30. OBJECTIVE: LUNGS: Clear. HEART: S1 and S2, regular rate. ABDOMEN: Soft. Bowel sounds are present, but not increased. No tenderness. No distention. LABORATORY DATA: White cell count 1.8, hemoglobin 7.2, platelets 316. CMV PCR pending. Histoplasma antigen was not detected. ASSESSMENT AND DISCUSSION: Longstanding inflammatory bowel disease/Crohn's with prior complications, now on Imuran, presumed remission and fever of unknown origin for the past 4 weeks, which now seems to have resolved, not clear if this was due to the cefepime or not. We do not have any unequivocal evidence of a bacterial infection other than C difficile, which seems to have been acquired after admission to the hospital. She is already on oral vancomycin. We will go ahead and discontinue cefepime. She should be able to go home soon if she remains afebrile. Job ID: [id number]
[2019-10-06] MEDS: Levothyroxine Sodium 100 MCG TAB PO SCH (05:41)
[2019-10-06] MEDS: Pantoprazole 40 MG VIAL IVP SCH ×2 (08:01→20:54)
[2019-10-06] MEDS: Ferrous Sulfate 325 MG TAB PO SCH ×2 (08:01→17:34)
[2019-10-06] MEDS: azaTHIOprine 50 MG TAB PO SCH (08:01)
[2019-10-06] MEDS: Vancomycin HCl 25 MG/ML Oral PO SCH ×4 (08:23→20:54)
[2019-10-06] MEDS: Sodium Bicarbonate Tab 325 MG TAB PO SCH ×3 (08:23→20:53)
[2019-10-06] MEDS ORDERED: Potassium Chloride 20 MEQ TAB PO SCH (09:30)
--- NOTE | 2019-10-06 13:13 | PRG ---
DATE OF SERVICE: 10/06/2019 SUBJECTIVE: Ms. Richardson had one liquidy stool this morning and three last night. OBJECTIVE: VITAL SIGNS: Temperature is 98.5, pulse 98, blood pressure 113/53. LABORATORY DATA: White blood cell count 1.8, hemoglobin 7.2, platelets 316. Creatinine 0.78. Thiopurine metabolite levels are pending. Neutrophil percent has been in the 80s. IMPRESSION: 1. Clostridium difficile colitis. She is on oral vancomycin. Importantly, her cefepime has now been discontinued such that hopefully we will see further improvement in her Clostridium difficile treatment now. 2. Leukopenia. Her absolute neutrophil count is around 1500. Her thiopurine metabolite levels are currently pending. However, it would be reasonable to hold her azathioprine temporarily to allow rebound of her white count. RECOMMENDATIONS: 1. Continue vancomycin p.o. 2. I will hold the azathioprine for tomorrow morning and hopefully we should have the thiopurine metabolite levels back soon. 3. We will continue to follow. Job ID: [id number]
--- NOTE | 2019-10-06 14:37 | PDOC.HOSPP ---
- Subjective Encounter Date: 10/06/19 Encounter Time: 11:20 Subjective: pt seen this am; i checked both lab -s erology adn micro section - quantiferon test result still pending. pt had few BMs today- watery, hgb stable. restart eliquis. - Objective Vital Signs & Weight: Vital Signs (12 hours) Temp Pulse Resp BP Pulse Ox 10/06/19 12:12 98.5 F 98 18 113/53 L 99 10/06/19 07:58 97.6 F 87 20 129/58 L 100 10/06/19 04:00 97.3 F L 88 16 135/61 96 Weight Admit Weight 211 lb 3 oz Weight 247 lb 12.8 oz I&O: 10/05/19 10/06/19 10/07/19 06:59 06:59 06:59 Intake Total 1410 2450 Output Total 500 500 Balance 910 1950 Result Diagrams: 10/05/19 04:36 10/05/19 04:36 Hospitalist ROS - Medication Medications: Active Medications Generic Name Dose Route Start Last Admin Trade Name Freq PRN Reason Stop Dose Admin Acetaminophen 650 mg 09/29/19 18:22 10/04/19 21:34 Tylenol PO 650 mg Q4H PRN Administration Headache/Fever/Mild Pain (1-3) Azathioprine 150 mg 10/05/19 09:00 10/06/19 08:01 Imuran PO 150 mg DAILY SLADE Administration Ferrous Sulfate 325 mg 10/04/19 17:00 10/06/19 08:01 Feosol PO 325 mg BID-WM SLADE Administration Levothyroxine Sodium 100 mcg 10/01/19 06:00 10/06/19 05:41 Synthroid PO 100 mcg 0600 SLADE Administration Morphine Sulfate 4 mg 09/29/19 19:42 10/01/19 00:15 Morphine SLOW IVP 4 mg Q4H PRN Administration Moderate to Severe Pain (6-10) Mupirocin 0 gm 10/04/19 12:22 10/04/19 13:38 Bactroban 2% Ointment TOP 1 applic TID PRN Administration WOUND CARE Ondansetron HCl 4 mg 09/29/19 18:22 09/30/19 08:34 Zofran Odt PO 4 mg Q6H PRN Administration Nausea/Vomiting Pantoprazole Sodium 40 mg 10/03/19 21:00 10/06/19 08:01 Protonix IVP 40 mg Q12HR SLADE Administration Sodium Bicarbonate 650 mg 09/30/19 15:00 10/06/19 08:23 Bicarbonate, Sodium PO 650 mg TID SLADE Administration Sodium Chloride 10 ml 09/29/19 21:00 10/06/19 08:23 Flush - Normal Saline IVF 10 ml Q12HR SLADE Administration Vancomycin HCl 250 mg 10/04/19 21:00 10/06/19 12:14 First Vancomycin PO 250 mg QID SLADE Administration Zolpidem Tartrate 5 mg 09/29/19 18:22 10/01/19 20:37 Ambien PO 5 mg HSPRN PRN Administration Insomnia - Exam General Appearance: NAD, awake alert Eye: PERRL ENT: normocephalic atraumatic Neck: supple Heart: RRR Respiratory: CTAB, normal chest expansion Gastrointestinal: soft, normal bowel sounds Hosp A/P - Plan (1) Sepsis Code(s): A41.9 - SEPSIS, UNSPECIFIED ORGANISM Status: Acute Qualifiers: Sepsis type: sepsis due to unspecified organism Sepsis acute organ dysfunction status: with acute organ dysfunction Severe sepsis acute organ dysfunction type: acute renal failure Severe sepsis shock status: without septic shock (2) Acute renal failure Status: Acute Qualifiers: Acute renal failure type: unspecified Qualified Code(s): N17.9 - Acute kidney failure, unspecified (3) Metabolic acidosis Code(s): E87.2 - ACIDOSIS Status: Acute (4) Crohn disease Code(s): K50.90 - CROHN'S DISEASE, UNSPECIFIED, WITHOUT COMPLICATIONS Status: Acute Qualifiers: Gastrointestinal tract location: small intestine Digestive disease complication type: unspecified complication Qualified Code(s): K50.019 - Crohn 's disease of small intestine with unspecified complications (5) hx of DVt and PE Anticoagulant long-term use -eliquis (6) Hypothyroid Code(s): E03.9 - HYPOTHYROIDISM, UNSPECIFIED Status: Chronic Qualifiers: Hypothyroidism type: unspecified Qualified Code(s): E03.9 - Hypothyroidism , unspecified Anemia of chronic disease - if hgb < 7.5, will get transfusion, keep low threshold as pt on eliquis as well. ] cultures - crypt only came back - neg. cont cefepime/vancomycin-------->stopped vanc COVID screen --------------> negative restarted azathioprine CT of chest-------> smal pl effusion, no PNA Diarrhea Cdiff colitis -- prob abx induced --no imodium Crohns Hemicolectocmy in 2013, sicne then crohns controlled w.. imuran. -restarted her imuran , knowing still quantiferon test pending. -checked w.. ID as well,restart it today. -appreciate the GI visit.. once quantiferon results back, if neg., PT consult and rehab vs.. home dc plan. -tried to reach the dtr, unable.
[2019-10-06 15:13] LABS: QuantiFERON-TB Gold Plus Indeterminate (Negative)
[2019-10-06 15:56] LABS: Hemoglobin 7.4 g/dL (12.0-16.0); Platelet Count 293 thou/uL (130-400)
[2019-10-06 17:21] LABS: Hemoglobin 7.2 g/dL (12.0-16.0); Platelet Count 315 thou/uL (130-400)
[2019-10-06] MEDS: Apixaban 5 MG TAB PO SCH (20:54)
[2019-10-07 03:41] VITALS: BMI 43.7
[2019-10-07 05:22] LABS: #Eosinphils 0.1 thou/uL (0.0-0.7); #Lymphocytes 0.3 thou/uL (1.20-3.40); #Monocytes 0.3 thou/uL (0.11-0.59); #Neutrophils 1.3 thou/uL (1.40-6.50); %Basophils 0.3 % (0.0-1.0); %Eosinophils 3.6 % (0.0-10.0); %Lymphocytes 16.5 % (21.0-51.0); %Monocytes 13.2 % (0.0-10.0); %Neutrophils 66.5 % (42.0-75.0); Mean Corpuscular HGB CONC 32.2 g/dL (32.0-36.0); Mean Corpuscular Hemoglobin 29.1 pg (27.0-31.0); Mean Corpuscular Volume 90.4 fL (78.0-98.0); Mean Platelet Volume 8.1 fL (7.4-10.4); Platelet Count 274 thou/uL (130-400); RBC Distribution Width 15.7 % (11.5-14.5); Red Blood Cell (RBC) Count 2.42 mill/uL (4.20-5.40); White Blood Cell (WBC) Count 1.9 thou/uL (4.8-10.8)
[2019-10-07] MEDS: Levothyroxine Sodium 100 MCG TAB PO SCH (05:37)
[2019-10-07 05:43] LABS: Anion Gap 10 mmol/L (10-20); BUN (Urea Nitrogen) 9 mg/dL (9.8-20.1); Calc. Creatinine Clearance 119 mL/min (70-130); Calcium 7.6 mg/dL (7.8-10.44); Carbon Dioxide 20 mmol/L (23-31); Chloride 112 mmol/L (98-107); Estimated GFR-MDRD 73; Glucose 78 mg/dL (80-115); Potassium 3.3 mmol/L (3.5-5.1); Sodium 139 mmol/L (136-145)
[2019-10-07] MEDS: Vancomycin HCl 25 MG/ML Oral PO SCH ×4 (08:13→20:20)
[2019-10-07] MEDS: Apixaban 5 MG TAB PO SCH ×2 (08:14→20:20)
[2019-10-07] MEDS: Ferrous Sulfate 325 MG TAB PO SCH ×2 (08:14→16:55)
[2019-10-07] MEDS: Sodium Bicarbonate Tab 325 MG TAB PO SCH ×3 (08:14→20:19)
[2019-10-07] MEDS: Pantoprazole 40 MG VIAL IVP SCH ×2 (08:14→20:19)
--- NOTE | 2019-10-07 11:31 | PRG ---
DATE OF SERVICE: 10/07/2019 SUBJECTIVE: Mrs. Richardson says she is feeling pretty well. She is not having any abdominal pain. She is tolerating her diet. She does continue to have diarrhea. She has had three loose bowel movements so far this morning. There has been no blood in the stool. No other symptoms. Azathioprine is being held today. OBJECTIVE: VITAL SIGNS: Temperature 97.5, pulse 99, blood pressure 128/60, 97% oxygen saturation on room air. GENERAL: No acute distress, sitting up in bed comfortably. HEART: Regular rate and rhythm. LUNGS: Clear to auscultation bilaterally. ABDOMEN: Obese. Bowel sounds present. Soft, nontender to palpation. EXTREMITIES: 1+ bilateral lower extremity edema. LABORATORY STUDIES: Hemoglobin 7.0, WBC 1.9, platelets 274. Sodium 139, potassium 3.3, BUN is 9, creatinine 0.78. QuantiFERON indeterminate. TPMT metabolite pending. ASSESSMENT AND PLAN: 1. Clostridium difficile colitis, possibly secondary to recent treatment with antibiotics and then cefepime. Cefepime has now been discontinued. Continue with oral vancomycin 250 mg four times daily by mouth. She will need to continue on this for 2 weeks from the date that the cefepime was completed. 2. Crohn's disease with small and large intestine. She has a colonic stricture. She has undergone partial small-bowel resection in the past. She is considered to be in remission for the past several years on azathioprine monotherapy. I do not suspect Crohn's flare as etiology of her recent symptoms. 3. Anemia, acute on chronic. There is no evidence of any overt bleeding. Consider possible toxicity from the azathioprine. Also note, she continues on Eliquis due to history of DVT. Eliquis has been restarted. Continue to monitor H and H. Decision on blood transfusion, I would leave to the Primary Service. 4. Leukopenia, possibly secondary to toxicity from the azathioprine. I would agree with Dr. Sadler to go ahead and continue holding the azathioprine for now while we await TPMT metabolites. Suspect we may end up lowering the dose of azathioprine going forward, but can make this decision at outpatient followup. I think the patient could be discharged from the hospital once her diarrhea symptoms are manageable. We will plan to see her back for Telehealth visit in a couple of weeks. Please call anytime with questions or concerns. Job ID: [id number]
--- NOTE | 2019-10-07 20:42 | PDOC.HOSPP ---
- Subjective Encounter Date: 10/07/19 Encounter Time: 20:40 Subjective: f/u for c. difficile colitis on po Vancomycin but less frequent stools currently. Appetite ok. No fever or chills, cough. - Objective Vital Signs & Weight: Vital Signs (12 hours) Temp Pulse Resp BP Pulse Ox 10/07/19 20:00 97.9 F 110 H 20 128/60 99 10/07/19 16:00 97.8 F 99 18 131/60 97 10/07/19 11:40 98.2 F 107 H 18 124/60 100 Weight Admit Weight 211 lb 3 oz Weight 247 lb I&O: 10/06/19 10/07/19 10/08/19 06:59 06:59 06:59 Intake Total 2450 2330 1200 Output Total 500 Balance 1950 2330 1200 Result Diagrams: 10/07/19 05:08 10/07/19 05:07 Additional Labs: Microbiology 10/04/19 15:23 Stool C. difficile GDH Antigen & Toxins - Final 10/01/19 14:47 Serum Cryptococcal Antigen - Final 10/03/19 12:47 Venous blood - Right Hand Blood Culture - Preliminary NO GROWTH AT 48 HOURS 10/03/19 12:47 Venous blood - Left Hand Blood Culture - Preliminary NO GROWTH AT 48 HOURS Laboratory Tests 10/03/19 10/03/19 10/04/19 16:17 16:17 04:26 WBC 1.8 L Hgb 7.3 L Potassium Carbon Dioxide Ferritin 320.90 H Vitamin B12 Greater than 2000 H Folate 12.00 10/04/19 10/05/19 10/05/19 04:26 04:36 04:36 WBC 1.8 L Hgb 7.2 L Potassium 3.3 L 3.3 L Carbon Dioxide 17 L 19 L Ferritin Vitamin B12 Folate 10/06/19 10/06/19 15:48 17:14 WBC Hgb 7.4 L 7.2 L Potassium Carbon Dioxide Ferritin Vitamin B12 Folate EKG Reviewed by me: Yes (Tele - SR) Hospitalist ROS - Medication Medications: Active Medications Generic Name Dose Route Start Last Admin Trade Name Freq PRN Reason Stop Dose Admin Acetaminophen 650 mg 09/29/19 18:22 10/04/19 21:34 Tylenol PO 650 mg Q4H PRN Administration Headache/Fever/Mild Pain (1-3) Apixaban 5 mg 10/06/19 21:00 10/07/19 20:20 Eliquis PO 5 mg BID SLADE Administration Azathioprine 150 mg 10/05/19 09:00 10/06/19 08:01 Imuran PO 150 mg DAILY SLADE Administration Ferrous Sulfate 325 mg 10/04/19 17:00 10/07/19 16:55 Feosol PO 325 mg BID-WM SLADE Administration Levothyroxine Sodium 100 mcg 10/01/19 06:00 10/07/19 05:37 Synthroid PO 100 mcg 0600 [facility] Administration Morphine Sulfate 4 mg 09/29/19 19:42 10/01/19 00:15 Morphine SLOW IVP 4 mg Q4H PRN Administration Moderate to Severe Pain (6-10) Mupirocin 0 gm 10/04/19 12:22 10/04/19 13:38 Bactroban 2% Ointment TOP 1 applic TID PRN Administration WOUND CARE Ondansetron HCl 4 mg 09/29/19 18:22 09/30/19 08:34 Zofran Odt PO 4 mg Q6H PRN Administration Nausea/Vomiting Pantoprazole Sodium 40 mg 10/03/19 21:00 10/07/19 20:19 Protonix IVP 40 mg Q12HR SLADE Administration Sodium Bicarbonate 650 mg 09/30/19 15:00 10/07/19 20:19 Bicarbonate, Sodium PO 650 mg TID [facility] Administration Sodium Chloride 10 ml 09/29/19 21:00 10/07/19 20:20 Flush - Normal Saline IVF 10 ml Q12HR SLADE Administration Vancomycin HCl 250 mg 10/04/19 21:00 10/07/19 20:20 First Vancomycin PO 250 mg QID [facility] Administration Zolpidem Tartrate 5 mg 09/29/19 18:22 10/01/19 20:37 Ambien PO 5 mg HSPRN PRN Administration Insomnia - Exam General Appearance: NAD, awake alert Eye: PERRL, anicteric sclera ENT: normocephalic atraumatic, no oropharyngeal lesions Neck: supple, symmetric, no JVD, no thyromegaly, no lymphadenopathy Heart: RRR, no murmur, no gallops, no rubs, normal peripheral pulses Respiratory: CTAB, no wheezes, no rales, no ronchi, normal chest expansion Gastrointestinal: soft, non-tender, non-distended, normal bowel sounds, no palpable masses Extremities: no cyanosis, no clubbing, no edema Skin: normal turgor, no lesions Neurological: cranial nerve grossly intact, no new deficit Musculoskeletal: normal tone, normal strength, no muscle wasting Psychiatric: normal affect, A&O x 3 Hosp A/P (1) Clostridium difficile colitis Code(s): A04.72 - ENTEROCOLITIS D/T CLOSTRIDIUM DIFFICILE, NOT SPCF RECUR Status: Acute Plan: Stool frequency decreasing, continue Vancomycin 250mg po q6h, Florastor 250mg daily (2) Sepsis Code(s): A41.9 - SEPSIS, UNSPECIFIED ORGANISM Status: Acute Qualifiers: Sepsis type: sepsis due to unspecified organism Sepsis acute organ dysfunction status: with acute organ dysfunction Severe sepsis acute organ dysfunction type: acute renal failure Severe sepsis shock status: without septic shock Plan: Likely due to c. difficile, resolving (3) Anemia due to immunosuppressive medication Code(s): D64.9 - ANEMIA, UNSPECIFIED; T45.1X5A - ADVERSE EFFECT OF ANTINEOPLASTIC AND IMMUNOSUP DRUGS, INIT Status: Acute Plan: No active loss noted but remains on Eliquis chronically, repeat H/H in am, may transfuse 1u PRBC's in am (4) Anticoagulant long-term use Code(s): Z79.01 - HALF-WAY (CURRENT) USE OF ANTICOAGULANTS Status: Chronic Plan: Eliquis 5mg BID (5) Acute kidney injury Code(s): N17.9 - ACUTE KIDNEY FAILURE, UNSPECIFIED Status: Acute Plan: Resolving, avoid nephrotoxic meds and limit contrast - Plan continue antibiotics, PT/OT, 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
[2019-10-08] MEDS: Levothyroxine Sodium 100 MCG TAB PO SCH (04:32)
[2019-10-08 05:28] LABS: #Eosinphils 0.1 thou/uL (0.0-0.7); #Lymphocytes 0.3 thou/uL (1.20-3.40); #Monocytes 0.2 thou/uL (0.11-0.59); #Neutrophils 1.1 thou/uL (1.40-6.50); %Basophils 1.5 % (0.0-1.0); %Eosinophils 4.1 % (0.0-10.0); %Lymphocytes 15.3 % (21.0-51.0); %Neutrophils 65.1 % (42.0-75.0); Hemoglobin 7.1 g/dL (12.0-16.0); Mean Corpuscular HGB CONC 32.7 g/dL (32.0-36.0); Mean Corpuscular Hemoglobin 29.7 pg (27.0-31.0); Mean Corpuscular Volume 90.8 fL (78.0-98.0); Mean Platelet Volume 8.3 fL (7.4-10.4); Platelet Count 256 thou/uL (130-400); Red Blood Cell (RBC) Count 2.39 mill/uL (4.20-5.40); White Blood Cell (WBC) Count 1.7 thou/uL (4.8-10.8)
[2019-10-08 05:47] LABS: Anion Gap 11 mmol/L (10-20); BUN (Urea Nitrogen) 8 mg/dL (9.8-20.1); Calc. Creatinine Clearance 125 mL/min (70-130); Calcium 7.7 mg/dL (7.8-10.44); Carbon Dioxide 22 mmol/L (23-31); Chloride 110 mmol/L (98-107); Estimated GFR-MDRD 75; Glucose 82 mg/dL (80-115); Potassium 3.2 mmol/L (3.5-5.1); Sodium 140 mmol/L (136-145)
[2019-10-08] MEDS ORDERED: Saccharomyces boulardii 250 MG CAP PO SCH (09:00)
[2019-10-08] MEDS: Sodium Bicarbonate Tab 325 MG TAB PO SCH ×2 (09:04→16:53)
[2019-10-08] MEDS: Vancomycin HCl 25 MG/ML Oral PO SCH ×3 (09:05→16:53)
[2019-10-08] MEDS: Ferrous Sulfate 325 MG TAB PO SCH ×2 (09:05→16:53)
[2019-10-08] MEDS: Apixaban 5 MG TAB PO SCH (09:05)
--- NOTE | 2019-10-08 11:46 | PRG ---
DATE OF SERVICE: 10/08/2019 SUBJECTIVE: Ms. Richardson is feeling a lot better. She has had one bowel movement so far today and feels her diarrhea slowed significantly down. She is not having any abdominal pain. There has been no overt bleeding. She is eager to go home if possible, tolerating her diet. OBJECTIVE: VITAL SIGNS: Temperature 98.4, pulse 94, blood pressure 143/62, and 94% oxygen saturation on room air. GENERAL: Pale, in no acute distress, in good spirits, sitting up in bed comfortably. HEART: Regular rate and rhythm. LUNGS: Clear to auscultation bilaterally. ABDOMEN: Soft, nontender to palpation. EXTREMITIES: No peripheral edema. LABORATORY STUDIES: WBC 1.7, hemoglobin stable at 7.1, and platelets 256. Sodium 140, potassium 3.2, BUN 8, and creatinine 0.76. TPMT metabolites are still pending. ASSESSMENT AND PLAN: 1. Clostridium difficile diarrhea. She has had some improvement over the past couple of days symptomatically. Stick with the plan for oral vancomycin 250 mg four times daily, to complete a 2-week course from the date that cefepime was completed. Also continue the probiotic. 2. Crohn disease with small and large intestine involvement. She has a colonic stricture. She has undergone partial small-bowel restriction in the past. She is still considered to be in remission for the past several years on azathioprine monotherapy. I do not suspect Crohn's flare as the etiology of her recent symptoms. 3. Anemia, acute on chronic. There is no evidence of any overt bleeding. She does continue on Eliquis due to history of deep venous thrombosis. Note, hemoglobin has been stable in the past several days. We will leave decision on blood transfusion to the primary service. 4. Leukopenia, possibly secondary to toxicity from the azathioprine. I would like to simply continue to hold the azathioprine for now, until clinic followup in a couple of weeks. Awaiting TPMT metabolites. I suspect we may end up lowering the dose of azathioprine going forward, but can make this decision at outpatient followup. From a GI perspective, I think the patient could be discharged from the hospital later today if still doing well. GI will sign off, but please call back anytime with questions or concerns. Job ID: [id number]
[2019-10-08 12:03] VITALS: BP 134/69; TEMP 97.9
--- NOTE | 2019-10-08 20:55 | DIS ---
DATE OF ADMISSION: 09/29/2019 DATE OF DISCHARGE: 10/08/2019 DISCHARGE DIAGNOSES: 1. Sepsis secondarily to #2. 2. Clostridium difficile colitis, improved. 3. 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 4. Chronic anticoagulation with Eliquis. 5. Acute kidney injury, resolving. 6. Hypothyroidism. 7. Crohn disease, controlled. CONSULTATIONS: 1. Sakina Rey and Doroteo with GI Service. 2. Dr. Niko Wheeler with Infectious Disease Service. PERTINENT LABORATORY AND X-RAY FINDINGS: Potassium ranged between 3.2 to 4.4, CO2 ranged between 15 to 22, creatinine ranged between 0.76-1.52, serum iron level 12, ferritin 321, vitamin B12 level greater than 2000, folic acid level 12.0. CBC showed a white blood cell count ranging between 1.7 to 2.4, hemoglobin ranged between 4.5 to 7.6. Histoplasma antigen less than 0.5. indeterminate, 10/01/2019. Serum cryptococcal antigen dated 10/01/2019, negative. Blood cultures x2 dated 10/03/2019, showed no growth at 5 days. C difficile antigen and toxin 10/04/2019, positive. CT of the abdomen and pelvis dated 09/30/2019. Mild free intraperitoneal fluid. Gallbladder distention noted. CT of the chest dated 10/01/2019, showed no evidence for pneumonia. Left anterior lateral abdominal wall ventral hernia noted. HOSPITAL COURSE: The patient was initially admitted after presenting with fever, chills, and diaphoresis. The patient underwent extensive evaluation including CT imaging of the abdomen and pelvis without obvious focal etiology. Initial lactic acid level was 3.2 at which point patient met sepsis criteria. The patient received IV fluid hydration in addition to broad-spectrum IV antibiotic therapy with Ceftin and vancomycin. The patient continued on broad-spectrum antibiotic therapy and was clinically monitored. Due to patient's presentation, Infectious Disease Service was consulted with concern for fever of unknown origin. Likely etiology included Crohn's complication or other intraabdominal process. Opportunistic infectious process was ruled out as stated previously, however, patient was noted positive for C difficile antigen and toxin. The patient was treated appropriately with oral vancomycin with near resolution of diarrhea by the time of discharge. Overall, the patient did remain clinically stable, tolerating regular oral intake with stable vital signs. I have examined the patient at the time of discharge and discussed followup instructions. The patient verbalized understanding and agreement ready for discharge on 10/08/2019. DISCHARGE MEDICATIONS: 1. Eliquis 5 mg p.o. b.i.d. 2. Imuran 150 mg p.o. daily. 3. Nexium 40 mg p.o. daily. 4. Ferrous sulfate 325 mg p.o. b.i.d. 5. Multivitamin 1 tablet p.o. daily. 6. Sodium bicarbonate 650 mg p.o. t.i.d. p.r.n. 7. Tramadol 25 mg p.o. b.i.d. 8. Levothyroxine 100 mcg p.o. daily. 9. Florastor 250 mg p.o. daily. 10. Vancomycin 250 mg p.o. q.i.d. x10 days. FOLLOWUP: The patient may follow up with Dr. Flavio Recinos, within 7 days of discharge. CONDITION ON DISCHARGE: Stable. ACTIVITY: Ad-irvin. DIET: Regular. CODE STATUS: Full. DISPOSITION: Home, 10/08/2019. TIME SPENT: Total time preparing and coordinating discharge is 34 minutes. Job ID: [id number]
[2019-10-09 21:07] LABS: CMV DNA-PCR Test Positive < 200 IU/mL (Negative)
--- NOTE | 2019-10-11 01:22 | PQF ---
[employer] Community Relations Advisor Crystal Reports Winform ViewerMARIAMA HONG NELLY TL [id number] [facility], [facility] [id number] CLINICAL DOCUMENTATION CLARIFICATION FORM: POST DISCHARGE Addendum to original discharge summary date: ____ Late entry note date: __ DATE: 10/11/2019 ATTN: Tl Cottrell Please exercise your independent, professional judgment in responding to the clarification form. Clinical indicators are provided on the bottom of this form for your review Kindly clarify regarding pancytopenia Please check appropriate box(s): Pancytopenia due to: [ x ] Chemotherapy/antineoplastic drugs [ ] Other drug-induced (please specify if known): [ ] Other diagnosis [ ] Unable to determine In addition, please specify: Present on Admission (POA): [ ] Yes [ ] No [ ] Unable to determine For continuity of documentation, please document condition throughout progress notes and discharge summary. Thank You. CLINICAL INDICATORS - SIGNS / SYMPTOMS / LABS I suspect patient's anemia and low white cell count is secondary to her azathioprine - H and P dated 09/29 by Velma Choi Patient has moderate pancytopenia - Consult dated 09/30 by Niko Randall She is a pancytopenic of her platelets - Progress note dated 10/03 by Fran Hauser If her leukopenia and anemia worsens, we can consider discontinuation of azathioprine - Progress note dated 10/04 by Bi Meeks Leukopenia, it would be reasonable to hold her azathioprine temporarily to allow rebound of her white count - Progress note dated 10/05 by Tl Caraballo Anemia, acute on chronic. Consider possible toxicity from the azathioprine - Progress note dated 4/9 by Kin Rey Leukopenia, possibly secondary to toxicity from the azathioprine - Progress note dated 10/06 by Kin Rey WBC 2.4 on 09/29, 1.9 on 09/30, 2.3 on 10/02, 1.8 on 10/03, 1.9 on 10/06 and 1.7 on 10/07 - Laboratory RBC is 2.51 on 09/29, 2.34 on 09/30, 1.48 on 10/02, 2.45 on 10/03 and 2.42 on 10/04 - Laboratory Hemoglobin/hematocrit is 7.6/23.2 on 09/29, 7.0/22.3 on 09/30, 4.5/13.7 on 10/02, 7.3/ 22.5 on 10/03 and 7.2/21.9 on 10/04 - Laboratory RISK FACTORS Clostridium difficile colitis - Discharge summary Crohn disease - Discharge summary Long-term use to immunosuppressive medication - Discharge summary TREATMENT: Continue to hold the azathioprine for now - Progress note dated 10/07 by Kin Rey (This form is maintained as a part of the permanent medical record) 2014 [employer], [employer]. All Rights Reserved [email or web address]
== END 2019-10-08 18:55 | disposition home or self-care (01) | DRG 871 ==
LOC: ERS 14:56 → 2SW 17:12
PROVIDERS: ADMIT Internal Medicine; ATTEND Internal Medicine
DX: A41.89 Other specified sepsis (principal); D61.810 Antineoplastic chemotherapy induced pancytopenia; N17.9 Acute kidney failure, unspecified; E87.2 Acidosis; J90 Pleural effusion, not elsewhere classified; A04.72 Enterocolitis due to Clostridium difficile, not specified as recurrent; K50.818 Crohn's disease of both small and large intestine with other complication; Z68.42 Body mass index [BMI] 45.0-49.9, adult; E03.9 Hypothyroidism, unspecified; E78.5 Hyperlipidemia, unspecified; T36.95XA Adverse effect of unspecified systemic antibiotic, initial encounter; D63.8 Anemia in other chronic diseases classified elsewhere; R65.20 Severe sepsis without septic shock; D64.81 Anemia due to antineoplastic chemotherapy; T45.1X5A Adverse effect of antineoplastic and immunosuppressive drugs, initial encounter; T36.1X5A Adverse effect of cephalosporins and other beta-lactam antibiotics, initial encounter; E66.01 Morbid (severe) obesity due to excess calories; Z86.718 Personal history of other venous thrombosis and embolism; Z86.711 Personal history of pulmonary embolism; Z79.01 Long term (current) use of anticoagulants; Z88.1 Allergy status to other antibiotic agents; Z88.8 Allergy status to other drugs, medicaments and biological substances
CPT/HCPCS: 36415; 71250; 74177; 76705; 80048; 80053; 82565; 82607; 82728; 82746; 83540; 83550; 83605; 85014; 85018; 85025; 85049; 86480; 86850; 86900; 86901; 87040; 87324; 87385; 87449; 87497; 87899; 93005; 96360; C9113; J0692; J2270; J3370; J3490; J7500; Q0162; Q9967; S0028

== ENCOUNTER 2021-06-13 19:54 | Inpatient (IN) | payer OTHER, MEDICARE, MEDICAID ==
[~2021-06-13 19:54] MED LIST: Iopamidol-370 76% 500 ML 1 ML ONE
[2021-06-13] MEDS ORDERED: Fentanyl 100 MCG/2 ML VIAL ONE ×2 (20:10→22:02)
[2021-06-13 20:39] LABS: #Eosinphils 0.2 thou/uL (0.0-0.7); #Lymphocytes 1.6 thou/uL (1.20-3.40); #Monocytes 1.2 thou/uL (0.11-0.59); #Neutrophils 12.4 thou/uL (1.40-6.50); %Basophils 0.3 % (0.0-1.0); %Lymphocytes 10.1 % (21.0-51.0); %Neutrophils 80.7 % (42.0-75.0); Hemoglobin 10.7 g/dL (12.0-16.0); Mean Corpuscular HGB CONC 32.6 g/dL (32.0-36.0); Mean Corpuscular Hemoglobin 32.3 pg (27.0-31.0); Mean Corpuscular Volume 99.1 fL (78.0-98.0); Mean Platelet Volume 7.6 fL (7.4-10.4); Platelet Count 337 thou/uL (130-400); RBC Distribution Width 14.6 % (11.5-14.5); Red Blood Cell (RBC) Count 3.33 mill/uL (4.20-5.40); White Blood Cell (WBC) Count 15.4 thou/uL (4.8-10.8)
[2021-06-13 20:52] LABS: INR-International Normal Ratio 1.2; PTT 27.8 sec (22.9-36.1); Prothrombin Time 15.1 sec (12.0-14.7)
[2021-06-13 20:55] LABS: ALT (SGPT) 20 U/L (8-55); AST (SGOT) 34 U/L (5-34); Albumin 3.4 g/dL (3.4-4.8); Alkaline Phosphatase 79 U/L (40-110); Anion Gap 17 mmol/L (10-20); BUN (Urea Nitrogen) 17 mg/dL (9.8-20.1); Bilirubin, Total 0.3 mg/dL (0.2-1.2); Calc. Creatinine Clearance 0 mL/min (70-130); Calcium 8.3 mg/dL (7.8-10.44); Carbon Dioxide 18 mmol/L (23-31); Chloride 109 mmol/L (98-107); Globulin 2.7 g/dL (2.4-3.5); Glucose 143 mg/dL (83-110); Potassium 4.1 mmol/L (3.5-5.1); Protein, Total 6.1 g/dL (5.8-8.1); Sodium 140 mmol/L (136-145)
[2021-06-13] MEDS ORDERED: Dextrose 50% Abboject 50 ML SYRINGE SLOW IVP PRN (21:58)
[2021-06-13] MEDS ORDERED: Dextrose 5% in Water 1,000 ML IV PRN (21:58)
[2021-06-13] MEDS ORDERED: hydrALAZINE 20 MG/ML VIAL SLOW IVP PRN (21:58)
[2021-06-13] MEDS ORDERED: Ondansetron ODT 4 MG TAB PO PRN (21:58)
[2021-06-13] MEDS ORDERED: Sodium Chloride 0.9% 1,000 ML IV SCH (22:00)
[2021-06-13] MEDS ORDERED: Ondansetron PF 4 MG/2 ML Vial ONE (22:02)
[2021-06-13] MEDS ORDERED: traMADol HCl 50 MG TAB PO PRN (22:16)
[2021-06-13] MEDS ORDERED: Acetaminophen 500 MG TAB PO SCH (22:30)
[2021-06-14] MEDS: Cyclobenzaprine 10 MG TAB PO PRN ×2 (00:16→20:07)
[2021-06-14] MEDS: Ondansetron PF 4 MG/2 ML Vial IVP PRN ×2 (00:16→20:06)
[2021-06-14] MEDS: Morphine 4 MG/ML VIAL SLOW IVP PRN ×3 (00:24→05:55)
[2021-06-14 01:24] VITALS: BMI 43.4
[2021-06-14] MEDS: Acetaminophen 500 MG TAB PO SCH ×4 (05:46→23:53)
[2021-06-14] MEDS: traMADol HCl 50 MG TAB PO SCH ×4 (05:47→23:54)
[2021-06-14 07:08] LABS: Phosphorus 5.5 mg/dL (2.3-4.7)
[2021-06-14 07:11] LABS: #Lymphocytes 0.6 thou/uL (1.20-3.40); #Monocytes 1.1 thou/uL (0.11-0.59); #Neutrophils 9.6 thou/uL (1.40-6.50); %Eosinophils 0.2 % (0.0-10.0); %Lymphocytes 5.6 % (21.0-51.0); %Monocytes 9.7 % (0.0-10.0); %Neutrophils 84.4 % (42.0-75.0); Mean Corpuscular HGB CONC 32.7 g/dL (32.0-36.0); Mean Corpuscular Hemoglobin 31.9 pg (27.0-31.0); Mean Corpuscular Volume 97.7 fL (78.0-98.0); Platelet Count 277 thou/uL (130-400); RBC Distribution Width 14.8 % (11.5-14.5); Red Blood Cell (RBC) Count 2.82 mill/uL (4.20-5.40); White Blood Cell (WBC) Count 11.4 thou/uL (4.8-10.8)
[2021-06-14 07:15] LABS: Anion Gap 15 mmol/L (10-20); BUN (Urea Nitrogen) 22 mg/dL (9.8-20.1); Calc. Creatinine Clearance 45 mL/min (70-130); Calcium 7.8 mg/dL (7.8-10.44); Carbon Dioxide 19 mmol/L (23-31); Chloride 107 mmol/L (98-107); Glucose 120 mg/dL (83-110); Magnesium 1.7 mg/dL (1.6-2.6); Potassium 5.7 mmol/L (3.5-5.1); Sodium 135 mmol/L (136-145)
[2021-06-14] MEDS ORDERED: Sodium Chloride 0.9% 1,000 ML IV SCH (07:45)
[2021-06-14] MEDS ORDERED: Magnesium 2 GM/50 ML 2 GM in Premix Bag 1 BAG IVPB SCH (08:30)
[2021-06-14] MEDS ORDERED: Gabapentin 100 MG CAP PO SCH (09:00)
[2021-06-14] MEDS ORDERED: Famotidine 20 MG TAB PO SCH (09:00)
[2021-06-14] MEDS: Ascorbic Acid 500 mg Chewable Tablet PO SCH ×2 (09:03→20:07)
[2021-06-14] MEDS: Escitalopram Oxalate 10 mg Tablet PO SCH (09:03)
[2021-06-14] MEDS: Senokot S 8.6-50 MG TAB PO SCH ×2 (09:03→20:07)
[2021-06-14] MEDS: azaTHIOprine 50 MG TAB PO SCH (09:04)
[2021-06-14] MEDS: Ferrous Sulfate 325 MG TAB PO SCH ×2 (09:04→20:08)
[2021-06-14] MEDS: Montelukast Sodium 10 mg Tablet PO SCH (09:04)
[2021-06-14] MEDS: Sodium Chloride 0.9% 1,000 ML IV SCH ×2 (09:06→15:25)
[2021-06-14] MEDS: Polyethylene Glycol 3350 17 GM Packet PO SCH (09:06)
[2021-06-14 11:48] LABS: SARS-CoV-2 PCR by NAA Not Detected (NotDetected)
[2021-06-14] MEDS: Gabapentin 300 MG CAP PO SCH ×2 (15:25→20:06)
[2021-06-14 16:31] LABS: Bilirubin Negative (Negative); Blood, Urine Negative (Negative); Clarity Clear (Clear); Glucose, Urine (Dipstick) Normal (Negative); Ketone, Urine Trace mg/dL (Negative); Leukocyte Negative Leu/uL (Negative); Nitrite Negative (Negative); Protein, Urine (Dipstick) 10 mg/dL (Neg-Trace); RBC/HPF None Seen HPF (0-3); Squamous Epithelial 0-3 HPF (0-3); Urobilinogen Normal mg/dL (Less than 2)
[2021-06-14 16:33] LABS: Bacteria/HPF Rare-Few HPF (None Seen); Specific Gravity, Urine 1.051 (1.002-1.036); Urine Culture Reflex Yes Yes
[2021-06-15] MEDS: Morphine 4 MG/ML VIAL SLOW IVP PRN (03:26)
[2021-06-15] MEDS: Sodium Chloride 0.9% 1,000 ML IV SCH (03:28)
[2021-06-15] MEDS: traMADol HCl 50 MG TAB PO SCH (05:10)
[2021-06-15] MEDS: Levothyroxine Sodium 100 MCG TAB PO SCH (05:11)
[2021-06-15] MEDS: Acetaminophen 500 MG TAB PO SCH (05:11)
[2021-06-15 06:22] LABS: Anion Gap 13 mmol/L (10-20); BUN (Urea Nitrogen) 28 mg/dL (9.8-20.1); Calc. Creatinine Clearance 50 mL/min (70-130); Calcium 7.9 mg/dL (7.8-10.44); Carbon Dioxide 18 mmol/L (23-31); Chloride 108 mmol/L (98-107); Glucose 114 mg/dL (83-110); Magnesium 2.4 mg/dL (1.6-2.6); Phosphorus 5.2 mg/dL (2.3-4.7); Sodium 134 mmol/L (136-145)
[2021-06-15 06:37] LABS: #Eosinphils 0.1 thou/uL (0.0-0.7); #Lymphocytes 0.6 thou/uL (1.20-3.40); #Monocytes 0.9 thou/uL (0.11-0.59); #Neutrophils 8.8 thou/uL (1.40-6.50); %Basophils 0.1 % (0.0-1.0); %Eosinophils 1.2 % (0.0-10.0); %Lymphocytes 5.8 % (21.0-51.0); %Monocytes 8.2 % (0.0-10.0); %Neutrophils 84.8 % (42.0-75.0); Mean Corpuscular HGB CONC 32.2 g/dL (32.0-36.0); Mean Corpuscular Hemoglobin 32.5 pg (27.0-31.0); Mean Platelet Volume 7.6 fL (7.4-10.4); Platelet Count 224 thou/uL (130-400); Red Blood Cell (RBC) Count 2.47 mill/uL (4.20-5.40); White Blood Cell (WBC) Count 10.4 thou/uL (4.8-10.8)
[2021-06-15] MEDS: Polyethylene Glycol 3350 17 GM Packet PO SCH (08:58)
[2021-06-15] MEDS: Senokot S 8.6-50 MG TAB PO SCH (08:59)
[2021-06-15] MEDS: Montelukast Sodium 10 mg Tablet PO SCH (09:00)
[2021-06-15] MEDS: Gabapentin 300 MG CAP PO SCH ×3 (09:00→20:20)
[2021-06-15] MEDS: Ferrous Sulfate 325 MG TAB PO SCH ×2 (09:01→20:21)
[2021-06-15] MEDS: azaTHIOprine 50 MG TAB PO SCH (09:01)
[2021-06-15] MEDS: Ascorbic Acid 500 mg Chewable Tablet PO SCH ×2 (09:02→20:22)
[2021-06-15] MEDS: Escitalopram Oxalate 10 mg Tablet PO SCH (09:02)
[2021-06-15] MEDS ORDERED: Acetaminophen/Codeine 30-300mg Tablet PO PRN (10:31)
[2021-06-15] MEDS: Acetaminophen/Codeine 30-300mg Tablet PO SCH ×2 (12:38→17:40)
[2021-06-15] MEDS: Acetaminophen 325 MG TAB PO SCH ×2 (12:39→17:31)
[2021-06-15] MEDS: Cyclobenzaprine 10 MG TAB PO PRN (19:25)
[2021-06-16] MEDS: Acetaminophen 325 MG TAB PO SCH ×4 (00:29→17:25)
[2021-06-16] MEDS: Acetaminophen/Codeine 30-300mg Tablet PO SCH ×5 (00:30→17:24)
[2021-06-16] MEDS: Senokot S 8.6-50 MG TAB PO SCH ×3 (01:26→20:24)
[2021-06-16] MEDS ORDERED: traMADol HCl 50 MG TAB PO PRN (03:23)
[2021-06-16] MEDS: Sodium Chloride 0.9% 1,000 ML IV SCH ×2 (04:52→11:08)
[2021-06-16 05:33] LABS: #Eosinphils 0.1 thou/uL (0.0-0.7); #Lymphocytes 0.4 thou/uL (1.20-3.40); #Monocytes 0.6 thou/uL (0.11-0.59); #Neutrophils 4.1 thou/uL (1.40-6.50); %Basophils 0.3 % (0.0-1.0); %Eosinophils 1.6 % (0.0-10.0); %Lymphocytes 6.9 % (21.0-51.0); %Monocytes 11.2 % (0.0-10.0); Hemoglobin 8.1 g/dL (12.0-16.0); Mean Corpuscular Hemoglobin 31.8 pg (27.0-31.0); Mean Corpuscular Volume 99.4 fL (78.0-98.0); Mean Platelet Volume 7.3 fL (7.4-10.4); Platelet Count 243 thou/uL (130-400); RBC Distribution Width 14.7 % (11.5-14.5); Red Blood Cell (RBC) Count 2.53 mill/uL (4.20-5.40); White Blood Cell (WBC) Count 5.2 thou/uL (4.8-10.8)
[2021-06-16] MEDS ORDERED: traMADol HCl 50 MG TAB PO SCH (06:00)
[2021-06-16] MEDS: Levothyroxine Sodium 100 MCG TAB PO SCH (06:20)
[2021-06-16 06:52] LABS: Anion Gap 14 mmol/L (10-20); BUN (Urea Nitrogen) 32 mg/dL (9.8-20.1); Calc. Creatinine Clearance 64 mL/min (70-130); Calcium 8.4 mg/dL (7.8-10.44); Carbon Dioxide 21 mmol/L (23-31); Chloride 108 mmol/L (98-107); Glucose 114 mg/dL (83-110); Magnesium 2.5 mg/dL (1.6-2.6); Phosphorus 3.8 mg/dL (2.3-4.7); Potassium 4.5 mmol/L (3.5-5.1); Sodium 138 mmol/L (136-145)
[2021-06-16] MEDS ORDERED: Acetaminophen/Codeine 30-300mg Tablet PO PRN (07:06)
[2021-06-16] MEDS ORDERED: Morphine 4 MG/ML VIAL ONE (08:48)
[2021-06-16] MEDS: Ferrous Sulfate 325 MG TAB PO SCH ×2 (08:56→20:27)
[2021-06-16] MEDS: Apixaban 5 MG TAB PO SCH ×2 (08:57→20:27)
[2021-06-16] MEDS: Gabapentin 300 MG CAP PO SCH ×3 (08:57→20:27)
[2021-06-16] MEDS: azaTHIOprine 50 MG TAB PO SCH (08:57)
[2021-06-16] MEDS: Montelukast Sodium 10 mg Tablet PO SCH (08:58)
[2021-06-16] MEDS: Ascorbic Acid 500 mg Chewable Tablet PO SCH ×2 (08:58→20:27)
[2021-06-16] MEDS: Escitalopram Oxalate 10 mg Tablet PO SCH (08:58)
[2021-06-16] MEDS ORDERED: Morphine 4 MG/ML VIAL SLOW IVP SCH (09:00)
[2021-06-16] MEDS ORDERED: Heparin 5,000 UNITS/ML VIAL SC SCH (09:00)
[2021-06-16] MEDS: Polyethylene Glycol 3350 17 GM Packet PO SCH (09:20)
[2021-06-17] MEDS: Acetaminophen 325 MG TAB PO SCH ×3 (00:20→12:25)
[2021-06-17] MEDS: Acetaminophen/Codeine 30-300mg Tablet PO SCH ×3 (00:20→12:24)
[2021-06-17] MEDS: Cyclobenzaprine 10 MG TAB PO PRN (02:14)
[2021-06-17] MEDS: Sodium Chloride 0.9% 1,000 ML IV SCH (02:15)
[2021-06-17] MEDS: Levothyroxine Sodium 100 MCG TAB PO SCH (05:15)
[2021-06-17 06:27] LABS: Hemoglobin 7.7 g/dL (12.0-16.0); Mean Corpuscular HGB CONC 30.6 g/dL (32.0-36.0); Mean Corpuscular Hemoglobin 30.6 pg (27.0-31.0); Mean Platelet Volume 7.6 fL (7.4-10.4); Platelet Count 214 thou/uL (130-400); RBC Distribution Width 14.7 % (11.5-14.5); Red Blood Cell (RBC) Count 2.53 mill/uL (4.20-5.40); White Blood Cell (WBC) Count 3.1 thou/uL (4.8-10.8)
[2021-06-17 06:53] LABS: Anion Gap 12 mmol/L (10-20); BUN (Urea Nitrogen) 32 mg/dL (9.8-20.1); Calc. Creatinine Clearance 81 mL/min (70-130); Calcium 8.1 mg/dL (7.8-10.44); Carbon Dioxide 21 mmol/L (23-31); Chloride 108 mmol/L (98-107); Glucose 97 mg/dL (83-110); Magnesium 2.5 mg/dL (1.6-2.6); Phosphorus 2.5 mg/dL (2.3-4.7); Potassium 4.7 mmol/L (3.5-5.1); Sodium 136 mmol/L (136-145)
[2021-06-17 07:55] LABS: Band 51 % (5-11); Eosinophils 6 % (0-10); Lymphocytes 15 % (21-51); MDiff Complete? YES; Metamyelocyte 1 % (0-0); Monocytes 21 % (0-10); Myelocyte 1 % (0-0); Neutrophil 5 % (42-75)
[2021-06-17] MEDS: Montelukast Sodium 10 mg Tablet PO SCH (08:42)
[2021-06-17] MEDS: Apixaban 5 MG TAB PO SCH (08:43)
[2021-06-17] MEDS: Gabapentin 300 MG CAP PO SCH (08:43)
[2021-06-17] MEDS: Ferrous Sulfate 325 MG TAB PO SCH (08:44)
[2021-06-17] MEDS: Escitalopram Oxalate 10 mg Tablet PO SCH (08:44)
[2021-06-17] MEDS: Ascorbic Acid 500 mg Chewable Tablet PO SCH (08:44)
[2021-06-17] MEDS: azaTHIOprine 50 MG TAB PO SCH (08:44)
[2021-06-17] MEDS: Ondansetron PF 4 MG/2 ML Vial IVP PRN (08:46)
[2021-06-17] MEDS ORDERED: Loperamide HCl 2 MG CAP PO PRN (08:59)
[2021-06-17 12:11] VITALS: BP 94/60; TEMP 98.2
== END 2021-06-17 15:02 | DRG 184 ==
LOC: ERS 19:54 → SURG A 21:30
PROVIDERS: ADMIT Specialist; ATTEND Specialist
PROC: 2W3AX1Z Immobilization of Right Upper Arm using Splint (ICD-10-PCS; principal; 2021-06-13)
DX: S22.43XA Multiple fractures of ribs, bilateral, initial encounter for closed fracture (principal); S22.051A Stable burst fracture of T5-T6 vertebra, initial encounter for closed fracture; S42.291A Other displaced fracture of upper end of right humerus, initial encounter for closed fracture; N17.9 Acute kidney failure, unspecified; D62 Acute posthemorrhagic anemia; Z68.41 Body mass index [BMI] 40.0-44.9, adult; Z20.822 Contact with and (suspected) exposure to COVID-19; E66.9 Obesity, unspecified; E78.00 Pure hypercholesterolemia, unspecified; M19.90 Unspecified osteoarthritis, unspecified site; E03.9 Hypothyroidism, unspecified; Z79.01 Long term (current) use of anticoagulants; Z90.49 Acquired absence of other specified parts of digestive tract; Z90.89 Acquired absence of other organs; Z87.891 Personal history of nicotine dependence; Z88.1 Allergy status to other antibiotic agents; Z88.6 Allergy status to analgesic agent; Z88.8 Allergy status to other drugs, medicaments and biological substances; Y93.89 Activity, other specified; Y92.22 Religious institution as the place of occurrence of the external cause; Z79.890 Hormone replacement therapy; Z79.899 Other long term (current) drug therapy; V43.52XA Car driver injured in collision with other type car in traffic accident, initial encounter
CPT/HCPCS: 36415; 70450; 71260; 72125; 74177; 80048; 80053; 81001; 83735; 84100; 84484; 85025; 85610; 85730; 87086; 96374; 96375; 96376; G0390; J2270; J2405; J3010; J3475; J7050; J7500; Q9967; U0003; U0005

== ENCOUNTER 2021-06-19 06:52 | Emergency (ER) | payer MEDICARE, MEDICAID ==
[2021-06-19] MEDS ORDERED: EPINEPHrine 1 MG/10 ML Abboject SYRINGE ONE (06:55)
== END 2021-06-19 06:57 | disposition expired ==
LOC: ERS 06:52
DX: I46.9 Cardiac arrest, cause unspecified (principal)
CPT/HCPCS: 92950; J0171